=== PATIENT | female | born 1935 | race Caucasian/White ===

== ENCOUNTER → 2018-04-23 08:21 | Outpatient (CLI) | payer MEDICARE, OTHER, SELFPAY ==
--- NOTE | 2018-04-23 08:28 | XR_ITS ---
XR hand LT min 3V HISTORY: Follow-up fracture ITS.REASON: left hand 5th MC fracture ORDERING PHYSICIAN: James Dial MD PATIENT AGE: 82 years COMPARISON: 04/04/2018 FINDINGS: Mildly displaced fracture once again noted involving the distal shaft of the fifth metacarpal. There is mild radial angulation and minimal radial displacement of the distal fracture fragment which is not significantly changed. No callus formation evident. Postsurgical changes are noted involving the distal radius. IMPRESSION: No change mildly displaced distal fifth metacarpal fracture
== END ==
PROVIDERS: PCP Internal Medicine; Visit Provider Orthopaedic Surgery
DX: S62.307A Unspecified fracture of fifth metacarpal bone, left hand, initial encounter for closed fracture (principal)
CPT/HCPCS: 73130

== ENCOUNTER → 2018-05-22 08:40 | Outpatient (CLI) | payer MEDICARE, OTHER, SELFPAY ==
--- NOTE | 2018-05-22 08:46 | XR_ITS ---
XR hand LT min 3V HISTORY: Follow-up fracture ITS.REASON: follow up from LT hand 5th ORDERING PHYSICIAN: James Dial MD PATIENT AGE: 82 years COMPARISON: 04/23/2018 FINDINGS: Mildly displaced fracture involves the distal aspect of the fifth metacarpal. There is minimal radial displacement of the distal fracture fragment. There is some developing callus formation. There is mild anterior angulation of the distal fracture fragment. There is some focal soft tissue swelling along the ulnar aspect of the fifth metacarpal phalangeal joint IMPRESSION: Healing fifth metacarpal fracture minimally displaced
== END ==
PROVIDERS: Visit Provider Orthopaedic Surgery
DX: S62.307A Unspecified fracture of fifth metacarpal bone, left hand, initial encounter for closed fracture (principal)
CPT/HCPCS: 73130

== ENCOUNTER → 2019-04-29 08:13 | Outpatient (CLI) | payer MEDICARE, OTHER, SELFPAY ==
--- NOTE | 2019-04-29 08:21 | XR_ITS ---
PROCEDURE: XR KNEE RT 4V CLINICAL INDICATION: right knee pain COMPARISON: No exams were available for comparison FINDINGS: There are no previous exams available for comparison. The patient has had prior intramedullary sandro placement into the femur. Callus formation is present in the mid to distal shaft of the femur anteriorly. No acute fracture or dislocation of the knee. There is very minimal decrease in joint space medially which may be due to early osteoarthritic change. IMPRESSION: No acute finding. Minimal osteoarthritic change. Prior ORIF of the femur Dictated by: Negrito Coles MD 04/29/2019 09:52 Electronically signed by Negrito Coles MD in [place] 04/29/2019 09:52
== END ==
PROVIDERS: Visit Provider Orthopaedic Surgery
DX: M25.561 Pain in right knee (principal)
CPT/HCPCS: 73564

== ENCOUNTER → 2019-12-28 13:34 | Outpatient (CLI) | payer MEDICARE, OTHER, SELFPAY ==
--- NOTE | 2019-12-28 13:40 | XR_ITS ---
PROCEDURE: XR LUMBAR SPINE MIN 4V CLINICAL INDICATION: ACUTE BILATERAL LOW BCK PAIN W/O SCIATICA COMPARISON: CR CXR2V XR chest 2V from 08/24/2018 FINDINGS: Has been prior vertebroplasty at L2. Severe wedge compression changes are present at L2 with retropulsion of the posterior aspect of the L2 vertebral body by approximately 8 mm. This does not appear significantly changed compared to lateral chest x-ray of 08/24/2018. Degenerative disc disease is present at L3-L4 and L5-S1. There is 5 mm anterolisthesis of L5. There is kyphosis at L1-L2. Degenerative changes are present at the SI joints. There is an intramedullary sandro in the left femur IMPRESSION: Lumbar spondylosis. Kyphosis with prior vertebroplasty and compressive change at L2 as described above Dictated by: Negrito Coles MD 12/28/2019 14:44 Negrito Coles MD in [place] 12/28/2019 14:44
== END ==
PROVIDERS: PCP Internal Medicine Adolescent Medicine; Visit Provider Internal Medicine Adolescent Medicine
DX: M54.5 Low back pain (principal)
CPT/HCPCS: 72110

== ENCOUNTER 2019-12-31 19:55 | Inpatient (IN) | payer MEDICARE, OTHER, SELFPAY ==
[2019-12-31 19:55] VITALS: BP 154/97; PULSE 118; RESP 20; TEMP 38.7; O2SAT 93; BMI 25.8
--- NOTE | 2019-12-31 20:11 | XR_ITS ---
PROCEDURE: XR CHEST AP CLINICAL HISTORY: cough w/ exposure COMPARISON: CR CXR2V XR chest 2V from 08/24/2018 FINDINGS: The cardiomediastinal silhouette and pulmonary vascularity are within normal limits. The lungs are clear without infiltrates, suspicious nodules, or pleural effusions. Surgical clips are present in the right axilla. There is an old right 7th rib fracture. IMPRESSION: No acute findings. Dictated by: Negrito Coles MD 01/01/2020 06:42 Negrito Coles MD in [place] 01/01/2020 06:42
[2019-12-31 20:19] LABS: Basophils # 0.1 K/mm3 (0-0.2); Basophils % 0.9 % (0.1-2.0); Eosinophils % 0.2 % (0.1-12.0); Hemoglobin 14.9 g/dL (12.2-16.2); Lymphocytes # 1.5 K/mm3 (0.7-4.5); Lymphocytes % 18.4 % (10-50); Mean Corpuscular HGB Conc 35.3 g/dL (31.8-35.4); Mean Corpuscular Hemoglobin 34.2 pg (27.0-31.2); Mean Corpuscular Volume 96.9 fl (81-99); Mean Platelet Volume 8.7 fl (7.4-10.4); Monocytes # 0.4 K/mm3 (0.1-1.0); Monocytes % 5.1 % (1.7-9.3); Neutrophils % 75.4 % (37.0-80.0); Platelet Count 141 K/mm3 (142-424); Red Blood Count 4.34 M/mm3 (4.20-5.40); Red Cell Distribution Width 14.4 % (11.5-17.5); White Blood Count 7.9 K/mm3 (4.8-10.8)
[2019-12-31 20:21] LABS: Chloride 100 mmol/L (98-107); Sodium 139 mmol/L (136-145)
[2019-12-31 20:24] LABS: Alanine Aminotransferase 90 U/L (12-78); Albumin Level 4.1 g/dl (3.5-5.0); Albumin/Globulin Ratio 1.1 (1.1-1.8); Alkaline Phosphatase 95 U/L (38-126); Anion Gap 13.9 mEq/L (5-15); Aspartate Amino Transferase 125 U/L (14-36); Bilirubin,Total 0.7 mg/dl (0.2-1.3); Blood Urea Nitrogen 13 mg/dl (7-17); Calcium 9.2 mg/dl (8.4-10.2); Carbon Dioxide 28 mmol/L (22.0-30.0); Creatinine Clearance Estimated 39 mL/min (50-200); Estimated Glomerular Filt Rate 95 ml/min (>60); GFR (African American) 116 ML/MIN (>60); Globulin 3.8 g/dL (1.3-3.2); Glucose 131 mg/dl (74-100); Lactic Acid 1.7 mmol/L (0.7-2.1); Total Protein,Serum 7.9 g/dl (6.3-8.2)
--- NOTE | 2019-12-31 20:34 | PC.NURSE ---
notified of critical pot.
[2019-12-31 20:36] LABS: Potassium 2.9 mmoL/L (3.5-5.1)
[2019-12-31 20:41] LABS: Microscopic, Urine URINE MICROSCOPIC (MICROSCOPIC)
[2019-12-31 20:42] LABS: Appearance,Urine CLEAR (Clear); Bilirubin,Urine Negative (Negative); Blood, Urine Negative (Negative); Color,Urine YELLOW (Yellow); Glucose,Urine (UA) Negative (Negative); Ketones,Urine Negative (Negative); Leukocyte Esterase,Urine TRACE (Negative); Nitrate,Urine Negative (Negative); Protein,Urine 2+ (Negative); Specific Gravity, Urine 1.025 (1.005-1.030); Urobilinogen,Urine 0.2 EU/dl (0.2)
[2019-12-31 20:51] LABS: Coronavirus 19 IgG Antibody Positive (Negative); Coronavirus 19 IgM Antibody Negative (Negative)
[2019-12-31 21:02] LABS: Bacteria,Urine 1+ /lpf
[2019-12-31 21:07] VITALS: BP 158/81; PULSE 102; RESP 20; TEMP 37.5; O2SAT 92
[2019-12-31 21:08] LABS: Strep Scrn Group A (Rapid) Negative (Negative)
[2019-12-31 21:33] VITALS: BP 150/68; PULSE 99; RESP 18; O2SAT 92
--- NOTE | 2019-12-31 21:33 | HMH.EDWEAK ---
ED Disposition Clinical Impression: Hypokalemia, SIRS (systemic inflammatory response syndrome) UTI (urinary tract infection) Qualifiers: Urinary tract infection type: site unspecified Hematuria presence: without hematuria Qualified Code(s): N39.0 - Urinary tract infection, site not specified Disposition: Admitted as Observation Condition on Discharge: Good Instructions: DI for Low Back Pain - Critical Care Critical Care Time: No Attestation: On 12/31/19, the high probability of a clinically significant, sudden or life threatening deterioration of the following system(s) required my full and direct attention, intervention and personal management. The time I documented below is in addition to time spent performing reported procedures but includes the following listed in this critical care notation. Medical Decision Making - Medical Records Medical records reviewed: Yes: I reviewed the patient's medical records. - [place] Inquiry Pt receiving controlled substance: No Vital Signs: 12/31/19 19:55 12/31/19 21:07 12/31/19 21:33 Temperature 101.6 F H 99.5 F Temperature Source Oral Oral Pulse Rate [Right Radial] 118 H 102 H 99 H Respiratory Rate 20 20 18 Blood Pressure [Left Arm] 154/97 H 158/81 H 150/68 H Blood Pressure Mean [Left Arm] 116 106 95 Blood Pressure Source [Left Arm] Automatic Cuff Automatic Cuff Blood Pressure Position [Left Arm] Supine Supine 02 Sat by Pulse Oximetry 93 L 92 L 92 L Oxygen Delivery Method Room Air Nasal Cannula Oxygen Flow Rate (LPM) 1 - Lab Data Lab results reviewed: Yes: I reviewed the patient's lab results. Lab Results 12/31/19 19:57: Urine Color Yellow, Urine Appearance Clear, Urine pH 6.0, Ur Specific [place] 1.025, Urine Protein 2+, Urine Glucose (UA) Negative, Urine Ketones Negative, Urine Blood Negative, Urine Nitrate Negative, Urine Bilirubin Negative, Urine Urobilinogen 0.2, Ur Leukocyte Esterase Trace, Urine RBC 3-5, Urine WBC 10-20, Ur Squamous Epith Cells 3-5, Urine Bacteria 1+ 12/31/19 19:57: WBC 7.9, RBC 4.34, Hgb 14.9, Hct 42.0, MCV 96.9, MCH 34.2 H, MCHC 35.3, RDW 14.4, Plt Count 141 L, MPV 8.7, Neut % (Auto) 75.4, Lymph % (Auto) 18.4, [place] % (Auto) 5.1, Eos % (Auto) 0.2, Baso % (Auto) 0.9, Neut # (Auto) 6.0, Lymph # (Auto) 1.5, [place] # (Auto) 0.4, Eos # (Auto) 0.0, Baso # (Auto) 0.1 12/31/19 19:57: Sodium 139, Potassium 2.9 L*, Chloride 100, Carbon Dioxide 28, Anion Gap 13.9, BUN 13, Creatinine 0.60, Estimated Creat Clear 39, Estimated GFR 95, Est GFR ( Amer) 116, Glucose 131 H, Calcium 9.2, Total Bilirubin 0.7, AST 125 H, ALT 90 H, Alkaline Phosphatase 95, Total Protein 7.9, Albumin 4.1, Globulin 3.8 H, Albumin/Globulin Ratio 1.1 12/31/19 19:57: Lactate 1.7 12/31/19 19:57: Influenza Type A Ag Negative, Influenza Type B Ag Negative, SARS-CoV-2 IgG Ab (Rapid) Positive A, SARS-CoV-2 IgM Ab (Rapid) Negative 12/31/19 19:57: Group A Strep Rapid Negative Result diagrams: 12/31/19 19:57 12/31/19 19:57 Orders (Tests/Meds): ED MEDICATIONS Generic Name Dose Route Start Last Admin Trade Name Freq PRN Reason Stop Dose Admin Sodium Chloride 1,000 mls @ 999 mls/hr 12/31/19 20:15 12/31/19 20:15 Sod Chlor 0.9% 1000ml Bag IV 12/31/19 21:15 999 mls/hr .Q1H1M CHITRA Administration Ceftriaxone Sodium 1 gm/ 50 mls @ 100 mls/hr 12/31/19 21:30 Sodium Chloride IV 01/14/20 21:29 Q24H CHITRA Protocol Discontinued Medications Generic Name Dose Route Start Last Admin Trade Name Freq PRN Reason Stop Dose Admin Acetaminophen 650 mg 12/31/19 20:11 12/31/19 20:15 Acetaminophen 325mg Tab PO 12/31/19 20:12 650 mg ONCE ONE Administration Potassium Chloride 40 meq 12/31/19 20:44 12/31/19 20:45 Klor-Con 20meq Tablet PO 12/31/19 20:45 40 meq ONCE ONE Administration ORDERS Category Date Time Status XR chest AP Stat Exams 12/31/19 20:11 Taken Blood Culture Stat Micro 12/31/19 19:57 Received Strep Screen Confirmation
--- NOTE | 2019-12-31 21:35 | PC.NURSE ---
paged Dr. Ndiaye
--- NOTE | 2019-12-31 22:34 | PC.NURSE ---
Report called to PRISCILA Oshea at this time
[2019-12-31 22:54] VITALS: BP 140/75; PULSE 96; RESP 18; O2SAT 94
[2019-12-31 23:02] VITALS: BP 135/71; PULSE 102; RESP 20; TEMP 37; O2SAT 95; BMI 25.2
--- NOTE | 2019-12-31 23:03 | PC.NURSE ---
PT ARRIVED TO THE FLOOR VIA STRETCHER W/STAFF FROM ED AT 2302.
[2019-12-31 23:06] VITALS: BP 140/75; PULSE 96; RESP 16; TEMP 37.5; O2SAT 94
--- NOTE | 2020-01-01 03:43 | PC.NURSE ---
Pt is A&Ox4 and has ambulated from stretcher to bed and tolerated well with staff assist x2. Pt has denied any pain, N/V/D, or SOB thus far this shift. Pt also denies cough or loss of taste and smell. Pt has been febrile this shift with a T-max of 101.6, Tylenol administered per JUN. Lungs are CTA. Pt was placed on 2LPM via NC in the ER, weaned to 1 LMP of O2 at this time with SaO2 93%. Pt denies wearing any home O2 or have any baseline respiratory issues. Pt has been tachycardic this shift with HR-max 118 in ER, since arrival to floor, HR 96-102. ABD is soft, non-tender, and active BS noted. Pt reports last BM was 12/30. No edema noted and peripheral pulses 2+. Pt remains in Airborne & Contact precautions d/t pending outpt swab. Staff has used full airborne and contact PPE with eye protection. VSS, call light within reach.
[2020-01-01 04:00] VITALS: BP 145/75; PULSE 77; RESP 18; TEMP 36.6; O2SAT 96
[2020-01-01 05:08] VITALS: BMI 25.2
[2020-01-01 06:11] LABS: Eosinophils % 0.3 % (0.1-12.0); Mean Platelet Volume 8.7 fl (7.4-10.4); Neutrophils # 4.2 K/mm3 (1.8-7.8); Platelet Count 125 K/mm3 (142-424)
[2020-01-01 06:28] LABS: Chloride 109 mmol/L (98-107); Potassium 4.4 mmoL/L (3.5-5.1); Sodium 143 mmol/L (136-145)
[2020-01-01 06:29] LABS: Basophils % 0.4 % (0.1-2.0); Hematocrit 38.3 % (37.0-47.0); Lymphocytes # 2.1 K/mm3 (0.7-4.5); Lymphocytes % 31.1 % (10-50); Mean Corpuscular HGB Conc 34.6 g/dL (31.8-35.4); Mean Corpuscular Hemoglobin 34.8 pg (27.0-31.2); Mean Corpuscular Volume 100.5 fl (81-99); Monocytes # 0.4 K/mm3 (0.1-1.0); Monocytes % 5.3 % (1.7-9.3); Neutrophils % 62.8 % (37.0-80.0); Red Blood Count 3.81 M/mm3 (4.20-5.40); Red Cell Distribution Width 14.2 % (11.5-17.5); White Blood Count 6.6 K/mm3 (4.8-10.8)
[2020-01-01 06:31] LABS: Anion Gap 9.4 mEq/L (5-15); Blood Urea Nitrogen 8 mg/dl (7-17); Calcium 8.5 mg/dl (8.4-10.2); Carbon Dioxide 29 mmol/L (22.0-30.0); Creatinine Clearance Estimated 38 mL/min (50-200); Estimated Glomerular Filt Rate 118 ml/min (>60); GFR (African American) 143 ML/MIN (>60); Glucose 107 mg/dl (74-100); Magnesium 1.8 mg/dl (1.6-2.3)
[2020-01-01 06:42] LABS: Hemoglobin 13.3 g/dL (12.2-16.2)
--- NOTE | 2020-01-01 07:39 | HMH.PHAVTE ---
[facility] Pharmacy VTE Monitoring - Patient Demographics Admission date: 01/01/20 Report Date: 01/01/20 Time: 07:39 Allergies/Adverse Reactions: Patient Allergies No Known Allergies Allergy (Verified 04/29/19 09:33) Height: 1.5 m Weight: 56.841 kg Patient Problems: Current Active Problems Hypokalemia (Acute) UTI (urinary tract infection) (Acute) SIRS (systemic inflammatory response syndrome) (Acute) - VTE Risk Labs: VTE Related Lab Results Hgb 13.3 g/dL (12.2-16.2) D 01/01/20 06:03 Hct 38.3 % (37.0-47.0) 01/01/20 06:03 Plt Count 125 K/mm3 (142-424) L 01/01/20 06:03 BUN 8 mg/dl (7-17) D 01/01/20 06:03 Creatinine 0.50 mg/dl (0.52-1.04) L 01/01/20 06:03 Estimated Creat Clear 38 mL/min (50-200) 01/01/20 06:03 Was VTE Risk Assessment Performed: Yes VTE Score: 6 VTE Risk Level: Moderate Risk Clinical Trial Participant: No - Prophylaxis VTE Prophylaxis Ordered?: Yes Types of VTE Prophylaxis: TEDS Knee High
[2020-01-01 07:49] VITALS: BP 150/88; PULSE 76; RESP 22; TEMP 36.9; O2SAT 89
[2020-01-01 08:00] VITALS: RESP 22; O2SAT 92
--- NOTE | 2020-01-01 08:27 | HMH.HP ---
*Admission Date: 01/01/20 *Chief complaint: cough, back pain, fever *History of present illness: 84-year-old female with history of chronic back pain, worsening fatigue, difficulty getting into her home yesterday due to severity of pain. Was brought to the ER via EMS due to her back pain and nausea. On arrival found to be febrile and tachycardic. Initial work-up concerning for UTI and was initiated on broad-spectrum antibiotics. Admission labs found her to be positive for COVID-19 IgG. Of note, she has been around her son-in-law who was positive for COVID-19, last exposure 12/22/2019. Patient has had some worsening fatigue and ache in her back starting over this past weekend. Minimal dry nonproductive cough as well. Denies dyspnea, diarrhea, chest pain. This morning given her cough, positive IgG for COVID-19, and exposure risk, nasal/respiratory PCR obtained showing her to be positive for COVID-19. Transition to respiratory isolation unit for further management. Pleasant and interactive on exam this morning [facility] History I have reviewed the patient's past medical history: Yes Medical History: Reports:: Aneurysm, Anxiety, Depression, Hyperlipidemia, Hypertension Denies:: Cancer, Diabetes Mellitus Type 1, Diabetes Mellitus Type 2, MRSA *Have you ever received a pneumonia vaccine?: Yes *Have you received a flu vaccine this season?: Yes Other Medical History: Reports: Arthritis, Cataracts Laterality Cases: Right: Mastectomy, Bilateral: Other Other Surgeries: Yes: Colonoscopy, , Tubal Ligation, Other Amputation: No Fractures: Yes - *Social History Last grade of school completed: 11th or 12th Smoking Status: Former smoker Alcohol Intake: never *Occupational Status:: retired [facility] Household Members: spouse *Travel in the last 8 weeks: None - Psychiatric History Pschychiatric History:: Reports:: Anxiety, Depression Family Hx:: Unable to obtain Review of Systems - Review of Systems Review of systems:: pertinent systems reviewed and negative unless documented below (14 point review of systems performed, pertinent positives and negatives as per HPI) - *Neurologic Reports weakness, Denies headache(s), Denies seizure-like activity Meds Home Medications Medication Instructions Recorded Confirmed Type Meclizine HCl [Meclizine 25mg Tab] 25 mg PO QIDP PRN #25 tab 09/19/17 12/31/19 Rx alprazolam 0.25 mg tablet 0.25 mg PO DAILY 04/10/18 01/01/20 History atorvastatin 40 mg tablet 40 mg PO DAILY 04/10/18 12/31/19 History calcium carbonate 200 mg calcium 200 mg PO BID tab 04/10/18 12/31/19 History (500 mg) chewable tablet omeprazole 20 mg capsule,delayed 20 mg PO DAILY 04/10/18 12/31/19 History release vitamins A,C,F-glzr-kdjpgi 14,320 1 cap PO BID 04/10/18 12/31/19 History unit-226 mg-200 unit capsule Cholecalciferol (Vitamin D3) 1,000 unit PO DAILY 01/01/20 01/01/20 History [Vitamin D3 1,000 Unit Cap] Allergies Allergy/AdvReac Type Severity Reaction Status Date / Time No Known Allergies Allergy Verified 04/29/19 09:33 Exam Vital signs and Labs for Last 24 Hours: Temp Pulse Resp BP Pulse Ox 98.4 F 76 22 150/88 H 89 L 01/01/20 07:49 01/01/20 07:49 01/01/20 07:49 01/01/20 07:49 01/01/20 07:49 Laboratory Results - last 24 hr 12/31/19 19:57: Urine Color Yellow, Urine Appearance Clear, Urine pH 6.0, Ur Specific [place] 1.025, Urine Protein 2+, Urine Glucose (UA) Negative, Urine Ketones Negative, Urine Blood Negative, Urine Nitrate Negative, Urine Bilirubin Negative, Urine Urobilinogen 0.2, Ur Leukocyte Esterase Trace, Urine RBC 3-5, Urine WBC 10-20, Ur Squamous Epith Cells 3-5, Urine Bacteria 1+ 12/31/19 19:57: WBC 7.9, RBC 4.34, Hgb 14.9, Hct 42.0, MCV 96.9, MCH 34.2 H, MCHC 35.3, RDW 14.4, Plt Count 141 L, MPV 8.7, Neut % (Auto) 75.4, Lymph % (Auto) 18.4, [place] % (Auto) 5.1, Eos % (Auto) 0.2, Baso % (Auto) 0.9, Neut # (Auto) 6.0, Lymph # (Auto) 1.5, [place] # (Auto) 0.4, Eos #
[2020-01-01 15:48] VITALS: BP 112/56; PULSE 74; RESP 20; TEMP 35.9; O2SAT 95
[2020-01-01 17:22] VITALS: O2SAT 95
[2020-01-01 20:12] VITALS: BP 94/63; PULSE 69; RESP 18; TEMP 35.8; O2SAT 92
[2020-01-02] VITALS (7 sets, daily range): BP systolic 109–121; BP diastolic 46–62; PULSE 51–68; RESP 16–19; TEMP 36–36.7; O2SAT 89–93; BMI 26.0
--- NOTE | 2020-01-02 00:29 | PC.NURSE ---
rectal temp 96.8 rectally, warm blankets applied.skin cool to touch.
--- NOTE | 2020-01-02 06:25 | PC.NURSE ---
patient has been alert and oriented throughout shift, denies soa. sats remain low 90s on 1l nc. has been continent of bowel and bladder. urine dark yellow in color. 2 loose stools noted. am labs obtained and sent to lab
[2020-01-02 06:39] LABS: Basophils % 0.1 % (0.1-2.0); Eosinophils % 0.2 % (0.1-12.0); Hematocrit 35.6 % (37.0-47.0); Hemoglobin 12.2 g/dL (12.2-16.2); Lymphocytes # 1.3 K/mm3 (0.7-4.5); Lymphocytes % 17.1 % (10-50); Mean Corpuscular HGB Conc 34.4 g/dL (31.8-35.4); Mean Corpuscular Hemoglobin 34.1 pg (27.0-31.2); Mean Corpuscular Volume 99.1 fl (81-99); Mean Platelet Volume 9.6 fl (7.4-10.4); Monocytes # 0.4 K/mm3 (0.1-1.0); Monocytes % 4.7 % (1.7-9.3); Neutrophils # 5.9 K/mm3 (1.8-7.8); Neutrophils % 77.9 % (37.0-80.0); Platelet Count 112 K/mm3 (142-424); Red Blood Count 3.59 M/mm3 (4.20-5.40); Red Cell Distribution Width 14.3 % (11.5-17.5); White Blood Count 7.6 K/mm3 (4.8-10.8)
[2020-01-02 06:45] LABS: Chloride 108 mmol/L (98-107); Potassium 3.4 mmoL/L (3.5-5.1); Sodium 141 mmol/L (136-145)
[2020-01-02 06:48] LABS: Alanine Aminotransferase 60 U/L (12-78); Albumin/Globulin Ratio 0.9 (1.1-1.8); Alkaline Phosphatase 58 U/L (38-126); Anion Gap 12.4 mEq/L (5-15); Aspartate Amino Transferase 72 U/L (14-36); Bilirubin,Total 0.4 mg/dl (0.2-1.3); Blood Urea Nitrogen 11 mg/dl (7-17); Calcium 8.2 mg/dl (8.4-10.2); Carbon Dioxide 24 mmol/L (22.0-30.0); Creatinine Clearance Estimated 39 mL/min (50-200); Estimated Glomerular Filt Rate 152 ml/min (>60); GFR (African American) 184 ML/MIN (>60); Globulin 3.2 g/dL (1.3-3.2); Glucose 119 mg/dl (74-100); Total Protein,Serum 6.2 g/dl (6.3-8.2)
[2020-01-02 07:07] LABS: Magnesium 1.7 mg/dl (1.6-2.3)
--- NOTE | 2020-01-02 07:35 | HMH.ACPN2 ---
Internal Medicine - PN: Subj *Date: 01/02/20 *Time: 14:43 Interval history: Ms. Kaur remained stable on room air at this time. Her urine culture has not speciated given concern that her infectious presentation is all related to COVID, not UTI. Tolerating p.o. intake better this morning. Remains afebrile. no nausea, worsening MELANIE, CP. continues to complain of back pain Exam Vital signs and Labs for Last 24 Hours: Temp Pulse Resp BP Pulse Ox 97.9 F 67 18 112/58 L 91 L 01/02/20 04:00 01/02/20 04:00 01/02/20 04:00 01/02/20 04:00 01/02/20 04:00 Laboratory Results - last 24 hr 01/02/20 05:40: WBC 7.6, RBC 3.59 L, Hgb 12.2, Hct 35.6 L, MCV 99.1 H, MCH 34.1 H, MCHC 34.4, RDW 14.3, Plt Count 112 L, MPV 9.6, Neut % (Auto) 77.9, Lymph % (Auto) 17.1, [place] % (Auto) 4.7, Eos % (Auto) 0.2, Baso % (Auto) 0.1, Neut # (Auto) 5.9, Lymph # (Auto) 1.3, [place] # (Auto) 0.4, Eos # (Auto) 0.0, Baso # (Auto) 0.0 01/02/20 05:40: Magnesium 1.7 01/02/20 05:40: Sodium 141, Potassium 3.4 L D, Chloride 108 H, Carbon Dioxide 24, Anion Gap 12.4, BUN 11 D, Creatinine 0.40 L, Estimated Creat Clear 39, Estimated GFR 152, Est GFR ( Amer) 184 D, Glucose 119 H, Calcium 8.2 L, Total Bilirubin 0.4, AST 72 H D, ALT 60 D, Alkaline Phosphatase 58, Total Protein 6.2 L, Albumin 3.0 L D, Globulin 3.2, Albumin/Globulin Ratio 0.9 L I & O for Last 24 hours: Intake & Output 12/30/19 12/31/19 01/01/20 01/02/20 23:59 23:59 23:59 23:59 Intake Total 1450 / 1450 100 / 100 Output Total 1600 / 1600 Balance -150 / -150 100 / 100 Weight 56.756 kg 56.841 kg 58.655 kg Microbiology Reports for the Last 24 Hours: Microbiology 12/31/19 19:57 Urine,Clean Catch Urine Culture - Preliminary NO GROWTH AFTER 24 HOURS 01/01/20 08:35 Nasopharyngeal Coronavirus COVID-19 PCR - Final Narrative: - Constitutional minimal distress, average body habitus, chronically ill appearing - *Routine HEENT Exam Head: Present: normocephalic Eye: Present: EOMI, PERRL ENT: Present: mucous membranes moist - *Routine Neck Exam Present: supple. Absent: lymphadenopathy - *Routine Respiratory Exam Present: CTA bilaterally. Absent: rales, wheezes - *Routine Cardiovascular Exam Present: RRR - *Routine Abdominal Exam Present: soft, normoactive bowel sounds, tenderness (Diffuse nonfocal) - *Routine Extremities Exam Absent: cyanosis, clubbing, edema - Routine Back/Spine/Pelvis Exam Back/Spine: Present: paraspinal tenderness, vertebral tenderness (Lumbar). Absent: CVA tenderness - *Routine Skin Exam Present: warm. Absent: rash - *Routine Neurological Exam Present: alert, oriented X3, tremors Assessment and Plan (1) COVID-19 Current visit: Yes Status: Acute Category: Medical Code(s): U07.1 - COVID-19 (2) Hypokalemia Current visit: Yes Status: Acute Category: Medical Code(s): E87.6 - Hypokalemia (3) UTI (urinary tract infection) Current visit: Yes Status: Acute Qualifiers: Urinary tract infection type: site unspecified Hematuria presence: without hematuria Qualified Code(s): N39.0 - Urinary tract infection, site not specified Category: Medical Code(s): N39.0 - Urinary tract infection, site not specified (4) Sepsis Current visit: Yes Status: Acute Category: Medical Code(s): A41.9 - Sepsis, unspecified organism - Assessment and plan all Dx Assessment and Plan for all problems:: 84-year-old female with positive COVID viral swab. Stable on current regimen per protocol with arm does appear, steroids, anticoagulant, and vitamins. Continue supplemental oxygen as needed. Patient very comfortable today, clinically stable. Continue to monitor urine, negative growth on culture at this time. We will continue empiric antibiotics for coverage pending finalized culture. At this time she continues to require inpatient management, anticipate discharge in the coming
--- NOTE | 2020-01-02 11:30 | PC.NURSE ---
Attempted to wean pt to room air. O2 noted at 85%. Pt placed back on 1L. O2 sat noted at 91%. Pt tolerating well.
--- NOTE | 2020-01-02 18:20 | PC.NURSE ---
A&OX4. Pt has tolerated 1L NC well throughout shift. Respirations regular and unlabored. Lung sounds diminished throughout. Occasional nonproductive cough noted. No edema noted. +2 pulses noted. Hand bicycle repairer equal. Active bowel sounds heard in all 4 quadrants. Soft and nontender abdomen. Pt had 1 small loose BM this shift. Pt voids per toilet w/ 1 person assist. Weakness noted. Dark yellow urine noted. No complaints of pain or shortness of breath throughout shift. No reports of nausea. Pt has remained afebrile. Pt has remained in contact and airborne precautions w eye protection throughout shift. LR infusing at 100ml/hr. Pt moves independently in bed. Pt is currently lying in bed resting. Call light within reach. Bed in lowest position. VSS. Will continue to monitor.
--- NOTE | 2020-01-02 23:22 | PC.NURSE ---
2000 patient having visual hallucinations, dr. ventura notified and new orders received, repeated back and carried out.
--- NOTE | 2020-01-02 23:24 | PC.NURSE ---
patient laying in bed, picking at things, removing o2 sensor as well as o2. r/a sat of 82%. oxygen reapplied at 2 l nc. o2 sats remained 86%, o2 increased to 3 l nc. currently o2 sats remain 90%. currently denies seeing people outside of room as she was earlier in shift.
[2020-01-03] VITALS: BP 128/61; PULSE 45; RESP 18; TEMP 36.2; O2SAT 94
--- NOTE | 2020-01-03 00:19 | PC.NURSE ---
patient now resting with eyes closed. o2 sats 93% at 3 l nc. will decrease o2 back down to 1 l nc. heart rate 40s to 50s and regular per palpation.
--- NOTE | 2020-01-03 02:32 | PC.NURSE ---
patient ambulated to bathroom on room air, sats 80% upon return to bed. 3l nc reapplied. patient breathing unlabored, remained 16-18 breaths per minute. denies hallucinations currently but remembers them from previous in the shift. unsteady on feet. heart rate increased to 55 with activity. breath sounds diminished throughout, no cough present.
[2020-01-03 04:00] VITALS: BP 133/63; PULSE 53; RESP 18; TEMP 36.5; O2SAT 91
[2020-01-03 06:05] LABS: Basophils % 0.1 % (0.1-2.0); Eosinophils % 0.1 % (0.1-12.0); Hematocrit 34.2 % (37.0-47.0); Hemoglobin 11.9 g/dL (12.2-16.2); Lymphocytes # 1.5 K/mm3 (0.7-4.5); Lymphocytes % 11.4 % (10-50); Mean Corpuscular HGB Conc 34.8 g/dL (31.8-35.4); Mean Corpuscular Hemoglobin 34.6 pg (27.0-31.2); Mean Corpuscular Volume 99.4 fl (81-99); Mean Platelet Volume 10.3 fl (7.4-10.4); Monocytes # 0.7 K/mm3 (0.1-1.0); Neutrophils % 83.4 % (37.0-80.0); Platelet Count 153 K/mm3 (142-424); Red Blood Count 3.44 M/mm3 (4.20-5.40); Red Cell Distribution Width 14.7 % (11.5-17.5); White Blood Count 13.1 K/mm3 (4.8-10.8)
--- NOTE | 2020-01-03 06:05 | PC.NURSE ---
patient remains on 3l nc sats 90s when asleep and decrease to 88% while awake. periodically sats will dip to 86 unsustained. breath sounds remain diminished throughout all [place]. slightly restless and anxious when awake denies any further hallucinations.
[2020-01-03 06:13] LABS: Chloride 110 mmol/L (98-107)
[2020-01-03 06:14] LABS: Potassium 3.2 mmoL/L (3.5-5.1); Sodium 142 mmol/L (136-145)
[2020-01-03 06:16] LABS: Alanine Aminotransferase 50 U/L (12-78); Alkaline Phosphatase 58 U/L (38-126); Anion Gap 10.2 mEq/L (5-15); Aspartate Amino Transferase 56 U/L (14-36); Bilirubin,Total 0.2 mg/dl (0.2-1.3); Blood Urea Nitrogen 18 mg/dl (7-17); Carbon Dioxide 25 mmol/L (22.0-30.0); Creatinine Clearance Estimated 39 mL/min (50-200); Estimated Glomerular Filt Rate 118 ml/min (>60); GFR (African American) 143 ML/MIN (>60)
[2020-01-03 06:17] LABS: Albumin Level 2.9 g/dl (3.5-5.0); Calcium 8.3 mg/dl (8.4-10.2); Globulin 2.9 g/dL (1.3-3.2); Glucose 115 mg/dl (74-100); Magnesium 1.8 mg/dl (1.6-2.3); Total Protein,Serum 5.8 g/dl (6.3-8.2)
[2020-01-03 08:00] VITALS: BP 124/70; PULSE 56; RESP 18; TEMP 36.2; O2SAT 93; O2SAT 96
--- NOTE | 2020-01-03 08:32 | HMH.ACPN2 ---
Internal Medicine - PN: Subj *Date: 01/03/20 *Time: 11:03 Interval history: Patient slight increase in oxygen overnight to 3 L. Tolerating good p.o. intake. Denies any progression of shortness of breath however. Afebrile. Hemodynamically stable. Of note, has had some questionable hallucinations/seeing people at her window overnight/during stay. Is cognizant of them and knows they are not real but this has been troublesome to her. Slept well with 1 dose of Ativan last night. Is otherwise alert and oriented. no CP, [place], Nausea; c/o fatigue. Exam Vital signs and Labs for Last 24 Hours: Temp Pulse Resp BP Pulse Ox 97.2 F L 56 L 18 124/70 93 L 01/03/20 08:00 01/03/20 08:00 01/03/20 08:00 01/03/20 08:00 01/03/20 08:00 Laboratory Results - last 24 hr 01/03/20 05:30: Sodium 142, Potassium 3.2 L, Chloride 110 H, Carbon Dioxide 25, Anion Gap 10.2, BUN 18 H D, Creatinine 0.50 L D, Estimated Creat Clear 39, Estimated GFR 118, Est GFR ( Amer) 143 D, Glucose 115 H, Calcium 8.3 L, Magnesium 1.8, Total Bilirubin 0.2, AST 56 H, ALT 50, Alkaline Phosphatase 58, Total Protein 5.8 L, Albumin 2.9 L, Globulin 2.9, Albumin/Globulin Ratio 1.0 L 01/03/20 05:30: WBC 13.1 H D, RBC 3.44 L, Hgb 11.9 L, Hct 34.2 L, MCV 99.4 H, MCH 34.6 H, MCHC 34.8, RDW 14.7, Plt Count 153 D, MPV 10.3, Neut % (Auto) 83.4 H, Lymph % (Auto) 11.4, [place] % (Auto) 5.0, Eos % (Auto) 0.1, Baso % (Auto) 0.1, Neut # (Auto) 11.0 H, Lymph # (Auto) 1.5, [place] # (Auto) 0.7, Eos # (Auto) 0.0, Baso # (Auto) 0.0 I & O for Last 24 hours: Intake & Output 12/31/19 01/01/20 01/02/20 01/03/20 23:59 23:59 23:59 23:59 Intake Total 1450 / 1450 2519 / 2519 360 / 360 Output Total 1600 / 1600 650 / 850 200 / 200 Balance -150 / -150 1869 / 1669 160 / 160 Weight 56.756 kg 56.841 kg 58.655 kg Microbiology Reports for the Last 24 Hours: Microbiology 12/31/19 19:57 Throat Group A Streptococcus Screen (ODALYS) - Final Negative for Group A Streptococcus. 12/31/19 19:57 Urine,Clean Catch Urine Culture - Final Multiple organisms, suggests contamination. 12/31/19 19:57 Blood Blood Culture - Preliminary NO GROWTH AFTER 48 HOURS 12/31/19 19:57 Blood Blood Culture - Preliminary NO GROWTH AFTER 48 HOURS Narrative: - Constitutional minimal distress, average body habitus, chronically ill appearing - *Routine HEENT Exam Head: Present: normocephalic Eye: Present: EOMI, PERRL ENT: Present: mucous membranes moist - *Routine Neck Exam Present: supple. Absent: lymphadenopathy - *Routine Respiratory Exam Present: Crackles on right side in lower lobes, comparatively clear on left. Absent: rales, wheezes Chest: s/p mastectomy on right (POA) - *Routine Cardiovascular Exam Present: RRR - *Routine Abdominal Exam Present: soft, normoactive bowel sounds, tenderness (Diffuse nonfocal) - *Routine Extremities Exam Absent: cyanosis, clubbing, edema - Routine Back/Spine/Pelvis Exam Back/Spine: Present: paraspinal tenderness, vertebral tenderness (Lumbar). Absent: CVA tenderness - *Routine Skin Exam Present: warm. Absent: rash - *Routine Neurological Exam Present: alert, oriented X3, tremors Assessment and Plan (1) COVID-19 Current visit: Yes Status: Acute Category: Medical Code(s): U07.1 - COVID-19 (2) Hypokalemia Current visit: Yes Status: Acute Category: Medical Code(s): E87.6 - Hypokalemia Replete as needed, p.o. potassium ordered today (3) UTI (urinary tract infection) Current visit: Yes Status: Acute Qualifiers: Urinary tract infection type: site unspecified Hematuria presence: without hematuria Qualified Code(s): N39.0 - Urinary tract infection, site not specified Category: Medical Code(s): N39.0 - Urinary tract infection, site not specified (4) Sepsis Current visit: Yes Status:
--- NOTE | 2020-01-03 10:41 | PC.NURSE ---
IS @ best this AM = [id number]
[2020-01-03 12:00] VITALS: BP 118/59; PULSE 54; RESP 20; TEMP 36.3; O2SAT 92
[2020-01-03 16:00] VITALS: BP 125/57; PULSE 52; RESP 20; TEMP 36.4; O2SAT 90
--- NOTE | 2020-01-03 16:28 | PC.NURSE ---
Addendum entered by Marisela Phipps RN 01/03/20 17:21: 1700 -O2 increased to 4 L nasal cannula at this time to maintain sat of 90%. Original Note: Pt was up to chair for a few hours and lunch this shift, is currently resting in bed. Remains on 3 L O2 per nasal cannula w/ sat > 90%. Is is at bedside and has been encouraged hourly. Staff has to often remind pt to keep pulse ox on for cont monitoring, pt verbalizes understanding but will take it off d/t forgetfulness. Pt did have one episode this morning of hallucination of a army parade and still recalls the hallucinations from last night, but denies seeing anything after that. Has been assisted to bathroom by staff d/t pt's weakness and side-stepping. Pt denies using a walker at home but does use a cane occasionally. Pt was assisted w/ bath by staff. Voiding clear light luis urine w/o difficulty. Has had one BM this shift. Pt has spoke w/ daughter on the phone earlier this shift. No needs or complaints voiced. Will continue to monitor.
[2020-01-03 18:21] VITALS: BMI 28.4
[2020-01-03 20:00] VITALS: BP 125/58; PULSE 55; RESP 18; TEMP 36.5; O2SAT 91
--- NOTE | 2020-01-03 21:38 | PC.NURSE ---
o2 to 2 lnc. patient resting comfortably. denies having hallucinations at this time
[2020-01-04] VITALS (7 sets, daily range): BP systolic 112–147; BP diastolic 60–82; PULSE 40–68; RESP 16–20; TEMP 36.5–36.7; O2SAT 91–93; BMI 27.6
--- NOTE | 2020-01-04 04:46 | PC.NURSE ---
patient remained on 2 l nc until period of desaturations lasting approximately 30-45 min with sats sustaining 85% at 0130. o2 increased back to 4 l nc. breath sounds diminished throughout all [place]. patient has denied any hallucinations and has rested well throughout the night. when awake patient uses i/s without promting.
--- NOTE | 2020-01-04 06:00 | XR_ITS ---
PROCEDURE: XR CHEST PORTABLE CLINICAL HISTORY: increased O2 requirement Shortness of air COMPARISON: CR CXR2V XR chest 2V from 08/24/2018 CR XR CHEST AP from 12/31/2019 FINDINGS: Mild cardiomegaly without failure. There is increasing density in the right mid upper lung zone consistent with pneumonia. Surgical clips are present in the right axilla. No acute bony abnormalities. IMPRESSION: Right upper lobe pneumonia Dictated by: Negrito Coles MD 01/04/2020 06:31 Negrito Coles MD in [facility] 01/04/2020 06:31
[2020-01-04 06:42] LABS: Basophils % 0.2 % (0.1-2.0); Eosinophils % 0.1 % (0.1-12.0); Hematocrit 35.2 % (37.0-47.0); Lymphocytes # 1.4 K/mm3 (0.7-4.5); Lymphocytes % 9.9 % (10-50); Mean Corpuscular HGB Conc 33.9 g/dL (31.8-35.4); Mean Corpuscular Hemoglobin 34.1 pg (27.0-31.2); Mean Corpuscular Volume 100.4 fl (81-99); Mean Platelet Volume 10.4 fl (7.4-10.4); Monocytes % 6.6 % (1.7-9.3); Neutrophils # 11.9 K/mm3 (1.8-7.8); Platelet Count 174 K/mm3 (142-424); Red Blood Count 3.51 M/mm3 (4.20-5.40); Red Cell Distribution Width 14.7 % (11.5-17.5); White Blood Count 14.3 K/mm3 (4.8-10.8)
--- NOTE | 2020-01-04 06:42 | PC.NURSE ---
o2 decreased back to 2 lnc sats maintaining 88-89%. patient breathing pattern unlabored, rr < 20 and > 12. breath sounds diminished throughout.
[2020-01-04 06:44] LABS: Chloride 109 mmol/L (98-107); Sodium 141 mmol/L (136-145)
[2020-01-04 06:45] LABS: Potassium 3.4 mmoL/L (3.5-5.1)
[2020-01-04 06:47] LABS: Alanine Aminotransferase 60 U/L (12-78); Albumin Level 2.8 g/dl (3.5-5.0); Alkaline Phosphatase 61 U/L (38-126); Anion Gap 9.4 mEq/L (5-15); Aspartate Amino Transferase 58 U/L (14-36); Bilirubin,Total 0.2 mg/dl (0.2-1.3); Blood Urea Nitrogen 17 mg/dl (7-17); Calcium 8.3 mg/dl (8.4-10.2); Carbon Dioxide 26 mmol/L (22.0-30.0); Creatinine Clearance Estimated 42 mL/min (50-200); Estimated Glomerular Filt Rate 118 ml/min (>60); GFR (African American) 143 ML/MIN (>60); Globulin 2.9 g/dL (1.3-3.2); Glucose 105 mg/dl (74-100); Magnesium 1.8 mg/dl (1.6-2.3); Total Protein,Serum 5.7 g/dl (6.3-8.2)
[2020-01-04 06:53] LABS: C-Reactive Protein 20.9 mg/L (0-4)
--- NOTE | 2020-01-04 07:59 | P.PN_ITS ---
Internal Medicine - PN: Subj *Date: 01/04/20 *Time: 08:16 Interval history: Patient remains on fairly minimal oxygen settings. Was able to be weaned down to 2 L nasal cannula. Is pleasant and talkative, denies complaints. Exam Vital signs and Labs for Last 24 Hours: Temp Pulse Resp BP Pulse Ox 97.7 F 48 L 20 143/68 H 91 L 01/04/20 04:43 01/04/20 04:43 01/04/20 04:43 01/04/20 04:43 01/04/20 04:43 Laboratory Results - last 24 hr 01/04/20 05:00: WBC 14.3 H, RBC 3.51 L, Hgb 12.0 L, Hct 35.2 L, MCV 100.4 H, MCH 34.1 H, MCHC 33.9, RDW 14.7, Plt Count 174, MPV 10.4, Neut % (Auto) 83.0 H, Lymph % (Auto) 9.9 L, [place] % (Auto) 6.6, Eos % (Auto) 0.1, Baso % (Auto) 0.2, Neut # (Auto) 11.9 H, Lymph # (Auto) 1.4, [place] # (Auto) 1.0, Eos # (Auto) 0.0, Baso # (Auto) 0.0 01/04/20 05:00: Sodium 141, Potassium 3.4 L, Chloride 109 H, Carbon Dioxide 26, Anion Gap 9.4, BUN 17, Creatinine 0.50 L, Estimated Creat Clear 42, Estimated GFR 118, Est GFR ( Amer) 143, Glucose 105 H, Calcium 8.3 L, Magnesium 1.8, Total Bilirubin 0.2, AST 58 H, ALT 60, Alkaline Phosphatase 61, C-Reactive Protein 20.9 H, Total Protein 5.7 L, Albumin 2.8 L, Globulin 2.9, Albumin/Globulin Ratio 1.0 L I & O for Last 24 hours: Intake & Output 01/01/20 01/02/20 01/03/20 01/04/20 11:59 11:59 11:59 11:59 Intake Total 690 / 690 860 / 860 3019 / 3019 2683 / 2683 Output Total 800 / 800 800 / 800 850 / 850 1400 / 1400 Balance -110 / -110 60 / 60 2169 / 2169 1283 / 1283 Weight 125 lb 5 oz 129 lb 5 oz 137 lb 3 oz Microbiology Reports for the Last 24 Hours: Microbiology 12/31/19 19:57 Throat Group A Streptococcus Screen (ODALYS) - Final Negative for Group A Streptococcus. 12/31/19 19:57 Urine,Clean Catch Urine Culture - Final Multiple organisms, suggests contamination. Narrative: Alert and oriented. Oropharynx clear. No JVD. Lungs sound surprisingly good. Good air movement. Heart rate regular without murmurs. Abdomen soft. No rash, moving all extremities well. Neurologic exam intact. Assessment and Plan (1) COVID-19 Current visit: Yes Status: Acute Category: Medical Code(s): U07.1 - COVID- 19 (2) Hypokalemia Current visit: Yes Status: Acute Category: Medical Code(s): E87.6 - Hypokalemia (3) UTI (urinary tract infection) Current visit: Yes Status: Acute Qualifiers: Urinary tract infection type: site unspecified Hematuria presence: without hematuria Qualified Code(s): N39.0 - Urinary tract infection, site not specified Category: Medical Code(s): N39.0 - Urinary tract infection, site not specified (4) Sepsis Current visit: Yes Status: Acute Category: Medical Code(s): A41.9 - Sepsis, unspecified organism - Assessment and plan all Dx Assessment and Plan for all problems:: Patient seems to be doing well. Continue to monitor oxygen and activity levels. She has multiple medical problems and is frail, her also has coronavirus 19 but seems to be doing well as an outpatient. PT/OT evaluation for home safety and activity evaluation for possible home health referral in the event of discharge tomorrow if she remains stable.
--- NOTE | 2020-01-04 08:49 | P.PN_ITS ---
Internal Medicine - PN: Subj *Date: 01/04/20 *Time: 08:49 Exam Vital signs and Labs for Last 24 Hours: Temp Pulse Resp BP Pulse Ox 97.7 F 48 L 20 143/68 H 91 L 01/04/20 04:43 01/04/20 04:43 01/04/20 04:43 01/04/20 04:43 01/04/20 04:43 Laboratory Results - last 24 hr 01/04/20 05:00: WBC 14.3 H, RBC 3.51 L, Hgb 12.0 L, Hct 35.2 L, MCV 100.4 H, MCH 34.1 H, MCHC 33.9, RDW 14.7, Plt Count 174, MPV 10.4, Neut % (Auto) 83.0 H, Lymph % (Auto) 9.9 L, [place] % (Auto) 6.6, Eos % (Auto) 0.1, Baso % (Auto) 0.2, Neut # (Auto) 11.9 H, Lymph # (Auto) 1.4, [place] # (Auto) 1.0, Eos # (Auto) 0.0, Baso # (Auto) 0.0 01/04/20 05:00: Sodium 141, Potassium 3.4 L, Chloride 109 H, Carbon Dioxide 26, Anion Gap 9.4, BUN 17, Creatinine 0.50 L, Estimated Creat Clear 42, Estimated GFR 118, Est GFR ( Amer) 143, Glucose 105 H, Calcium 8.3 L, Magnesium 1.8, Total Bilirubin 0.2, AST 58 H, ALT 60, Alkaline Phosphatase 61, C-Reactive Protein 20.9 H, Total Protein 5.7 L, Albumin 2.8 L, Globulin 2.9, Albumin/Globulin Ratio 1.0 L I & O for Last 24 hours: Intake & Output 01/01/20 01/02/20 01/03/20 01/04/20 23:59 23:59 23:59 23:59 Intake Total 1450 / 1450 2519 / 2519 2583 / 2583 700 / 700 Output Total 1600 / 1600 650 / 850 700 / 700 900 / 900 Balance -150 / -150 1869 / 1669 1883 / 1883 -200 / -200 Weight 56.841 kg 58.655 kg 63.957 kg 62.227 kg Microbiology Reports for the Last 24 Hours: Microbiology 12/31/19 19:57 Throat Group A Streptococcus Screen (ODALYS) - Final Negative for Group A Streptococcus. 12/31/19 19:57 Urine,Clean Catch Urine Culture - Final Multiple organisms, suggests contamination. Assessment and Plan (1) COVID-19 Current visit: Yes Status: Acute Category: Medical Code(s): U07.1 - COVID- 19 (2) Hypokalemia Current visit: Yes Status: Acute Category: Medical Code(s): E87.6 - Hypokalemia (3) UTI (urinary tract infection) Current visit: Yes Status: Acute Qualifiers: Urinary tract infection type: site unspecified Hematuria presence: without hematuria Qualified Code(s): N39.0 - Urinary tract infection, site not specified Category: Medical Code(s): N39.0 - Urinary tract infection, site not specified (4) Sepsis Current visit: Yes Status: Acute Category: Medical Code(s): A41.9 - Sepsis, unspecified organism The patient's infection will respond to the chosen ABx?: Yes (EMPIRIC COVERAGE) Is the patient receiving the right drug, dose, and route?: Yes Could a more targeted ABx be ordered?: No (URINE CULTURE CONTAMINATED)
--- NOTE | 2020-01-04 09:51 | HMH.OTEV ---
OT Inpatient Evaluation Rehab OT IP Evaluation Start: 01/04/20 07:59 Freq: ONCE Status: Complete Protocol: Document 01/04/20 09:44 KIRSTINELBERON (Rec: 01/04/20 09:51 [facility] [id number]) Rehab OT IP Assessment Subjective History Pt oriented x 3 on arrival. Pt agreeable to engage in therapy evaluation. Pt was admitted via ED on 01/01/20. Pt came to ER due to worsening back pain, nausea, and difficulty with functional abilities. Pt was febrile and tachycardic on arrival and tested positive for COVID19. She suspects she was exposed by son in law on 12/22/19. Pt reports normally she lives at home with her in a two story home. Usually she is able to complete all ADLs and IADLs independently. She does use a can during ambulation at times. Pt's home is two levels and she has 12 steps to go up in order to get to her bedroom and bathroom. Pt reports she wants to go home with . Subjective I'm doing good I think. Objective Patient Orientation Person,Place,Birthday Upper Extremity Gross ROM WFL Transfer Training Sit/Stand Transfer Assist Level Contact Guard/Hand Hold Chair Transfer Ability Contact Guard/Hand Hold Chair Transfer Technique Sit to/from Ambulatory Chair Transfer Assistive Devices None Performing Toilet Hygiene Ability Standby Assistance Overall Commode/Toilet Transfer Ability Assistance x1 Commode/Toilet Transfer Technique Sit to/from Ambulatory Rehab OT IP prob,goals,plan Problems Date of Evaluation: 01/04/20 OT IP Problems Bed Mobility,Transfers,Gait, Balance,Self care,Safety Rehab Potential Rehab Potential Good Equipment Needs Assistive Devices Straight Cane Plan OT intervention Plan Bed Mobility,Transfers,Gait, Balance,Self care,Safety, Therapeutic Exercise OT Plan Frequency Daily Duration LOS Discharge Goals Bed Mobility Ability Standby Assistance Sit to Stand Chair Transfer Ability Supervision/Stand by Chair Transfer Ab
--- NOTE | 2020-01-04 11:03 | HMH.PULMCON ---
*Admission Date: 01/01/20 *Reason for consult:: COVID-19 positive test (U07.1, COVID-19) with Acute Pneumonia (J12.89, Ot *History of present illness: Ms. Kaur is a 84-year-old female history of chronic back pain from her prior back surgery was presented to the ER with with worsening back pain, fatigue and shortness of breath. Patient has uncovered exposure from her son-in-law and on presentation her IV IgG was positive for COVID-19 serologies and her nasal MRSA PCR also resulted positive. Patient remained stable throughout the hospital course requiring nasal cannula oxygen supplementation at 2 to 3 L. Pulmonary was consulted today for further management. Patient is a never smoker, denies any respiratory issues, denies any shortness of breath or exertional dyspnea prior to this hospital presentation. , [facility] History Medical History: Reports:: Aneurysm, Anxiety, Depression, Hyperlipidemia, Hypertension Denies:: Cancer, Diabetes Mellitus Type 1, Diabetes Mellitus Type 2, MRSA *Have you ever received a pneumonia vaccine?: Yes *Have you received a flu vaccine this season?: Yes Other Medical History: Reports: Arthritis, Cataracts Laterality Cases: Right: Mastectomy, Bilateral: Other Other Surgeries: Yes: Colonoscopy, , Tubal Ligation, Other Amputation: No Fractures: Yes - *Social History Last grade of school completed: 11th or 12th Smoking Status: Former smoker Alcohol Intake: never *Occupational Status:: retired Housing: [facility] Household Members: spouse *Travel in the last 8 weeks: None - Psychiatric History Pschychiatric History:: Reports:: Anxiety, Depression Family Hx:: Unable to obtain [facility] Pulmonology ROS - Review of Systems Review of systems:: other - Constitutional Reports body ache(s), Reports weakness - *Cardiovascular Reports shortness of breath, Reports shortness of breath with activity - *Respiratory Respiratory: Yes chest congestion, Yes non-productive cough, Yes dyspnea on exertion - *Gastrointestinal Gastrointestingal: Reports: system reviewed and no additional complaints, except as docu - *Musculoskeletal Musculoskeletal: Reports back pain - *Neurologic Reports weakness, Denies headache(s), Denies seizure-like activity - Endocrine Denies cold intolerance - Hematologic/Lymphatic Denies easy bleeding Meds Home Medications Medication Instructions Recorded Confirmed Type Meclizine HCl [Meclizine 25mg Tab] 25 mg PO QIDP PRN #25 tab 09/19/17 12/31/19 Rx alprazolam 0.25 mg tablet 0.25 mg PO DAILY 04/10/18 01/01/20 History atorvastatin 40 mg tablet 40 mg PO DAILY 04/10/18 12/31/19 History calcium carbonate 200 mg calcium 200 mg PO BID tab 04/10/18 12/31/19 History (500 mg) chewable tablet omeprazole 20 mg capsule,delayed 20 mg PO DAILY 04/10/18 12/31/19 History release vitamins A,C,K-seca-pxajch 14,320 1 cap PO BID 04/10/18 12/31/19 History unit-226 mg-200 unit capsule Cholecalciferol (Vitamin D3) 1,000 unit PO DAILY 01/01/20 01/01/20 History [Vitamin D3 1,000 Unit Cap] Allergies Allergy/AdvReac Type Severity Reaction Status Date / Time No Known Allergies Allergy Verified 04/29/19 09:33 Exam Vital signs and Labs for Last 24 Hours: Temp Pulse Resp BP Pulse Ox 98.0 F 56 L 18 147/75 H 93 L 01/04/20 08:00 01/04/20 08:00 01/04/20 08:00 01/04/20 08:00 01/04/20 08:00 Laboratory Results - last 24 hr 01/04/20 05:00: WBC 14.3 H, RBC 3.51 L, Hgb 12.0 L, Hct 35.2 L, MCV 100.4 H, MCH 34.1 H, MCHC 33.9, RDW 14.7, Plt Count 174, MPV 10.4, Neut % (Auto) 83.0 H, Lymph % (Auto) 9.9 L, [place] % (Auto) 6.6, Eos % (Auto) 0.1, Baso % (Auto) 0.2, Neut # (Auto) 11.9 H, Lymph # (Auto) 1.4, [place] # (Auto) 1.0, Eos # (Auto) 0.0, Baso # (Auto) 0.0 01/04/20 05:00: Sodium 141, Potassium 3.4 L, Chloride 109 H, Carbon Dioxide 26, Anion Gap 9.4, BUN 17, Creatinine 0.50 L, Estimated Creat Clear 42, Estimated GFR 118, Est GFR ( Amer) 143, Glucose 105 H, Calcium 8.3 L, Mag
--- NOTE | 2020-01-04 12:04 | HMH.PTEV ---
Physical Therapy Evaluation Rehab PT IP Evaluation Start: 01/04/20 07:59 Freq: ONCE Status: Active Protocol: Document 01/04/20 11:58 PWRITU (Rec: 01/04/20 12:03 PWRITU [id number]) Subjective/History History History This is the intiial IP PT evalaution for Kellie Kaur. Pt is an 84 y/o female admitted to [facility] for UTI. Pt did test positive for COVID. Pt has IgG, her is positive as well. Pt lives in a 2 story apartment w/12 steps inside to bedroom. Prior to Pt admittance pt was mostly I w/ ADL's Subjective Subjective Pt reports no complaints Rehab PT IP Eval Objective Appearance Patient Behavior Appropriate,Cooperative Patient Orientation Person,Place,Time Difficulty following instructions none Speech Pattern Clear,Appropriate Ambulation Patient Able to Ambulate Yes Ambulation Observation IP General Gait Pattern Observation Shuffling Step Ambulation Distance (feet) 10 Ambulation Assistive Device None Ambulation Ability Contact Guard/Hand Hold Balance Ability to Arise Able, uses arms to help Sitting Balance Steady, safe Standing Balance Steady, wide stance Dynamic Sitting Balance Ability Good Dynamic Standing Balance Ability Fair Transfers Bed Transfer Ability Supervision/Stand by Chair Transfer Ability Supervision/Stand by Sit to Stand Bed Transfer Ability Supervision/Stand by,Contact Guard/Hand Hold Sit to Stand Chair Transfer Ability Supervision/Stand by,Contact Guard/Hand Hold ROM All Extremities PT ROM Status WFL MMT All Extremities PT MMT WFL Rehab PT IP prob,goals,plan Problems Date of Evaluation: 01/04/20 PT IP Problems Gait Rehab Potential Rehab Potential Fair Equipment Needs Assistive Devices None / NA Plan PT Intervention Plan Transfers,Gait,Therapeutic Exercise PT Plan Frequency BID Duration LOS Discharge Goals Bed Transfer Ability Independent Sit to Stand Chair Transfer Ability Supervision/Stand by Ambulation Assistive Device Straight Cane,Rolling Walker Ambulation Distance (feet) 25 Discharge Plan PT Discharge Plan pt safe to be dc'd home once mediclly stable - due to pt's
--- NOTE | 2020-01-04 12:04 | HMH.PTEV ---
Physical Therapy Evaluation Rehab PT IP Evaluation Start: 01/04/20 07:59 Freq: ONCE Status: Active Protocol: Document 01/04/20 11:58 PWRITU (Rec: 01/04/20 12:03 PWRITU [id number]) Subjective/History History History This is the intiial IP PT evalaution for Kellie Kaur. Pt is an 84 y/o female admitted to [facility] for UTI. Pt did test positive for COVID. Pt has IgG, her is positive as well. Pt lives in a 2 story apartment w/12 steps inside to bedroom. Prior to Pt admittance pt was mostly I w/ ADL's Subjective Subjective Pt reports no complaints Rehab PT IP Eval Objective Appearance Patient Behavior Appropriate,Cooperative Patient Orientation Person,Place,Time Difficulty following instructions none Speech Pattern Clear,Appropriate Ambulation Patient Able to Ambulate Yes Ambulation Observation IP General Gait Pattern Observation Shuffling Step Ambulation Distance (feet) 10 Ambulation Assistive Device None Ambulation Ability Contact Guard/Hand Hold Balance Ability to Arise Able, uses arms to help Sitting Balance Steady, safe Standing Balance Steady, wide stance Dynamic Sitting Balance Ability Good Dynamic Standing Balance Ability Fair Transfers Bed Transfer Ability Supervision/Stand by Chair Transfer Ability Supervision/Stand by Sit to Stand Bed Transfer Ability Supervision/Stand by,Contact Guard/Hand Hold Sit to Stand Chair Transfer Ability Supervision/Stand by,Contact Guard/Hand Hold ROM All Extremities PT ROM Status WFL MMT All Extremities PT MMT WFL Rehab PT IP prob,goals,plan Problems Date of Evaluation: 01/04/20 PT IP Problems Gait Rehab Potential Rehab Potential Fair Equipment Needs Assistive Devices None / NA Plan PT Intervention Plan Transfers,Gait,Therapeutic Exercise PT Plan Frequency BID Duration LOS Discharge Goals Bed Transfer Ability Independent Sit to Stand Chair Transfer Ability Supervision/Stand by Ambulation Assistive Device Straight Cane,Rolling Walker Ambulation Distance (feet) 25 Discharge Plan PT Discharge Plan pt safe to be dc'd home once mediclly stable - due to pt's
--- NOTE | 2020-01-04 18:22 | PC.NURSE ---
A&OX4. PT HAS TOLERATED 2L NC WELL THROUGHOUT SHIFT. RESPIRATIONS REGULAR AND UNLABORED. FINE CRACKLES NOTED IN RUL. LUNG SOUNDS CLEAR IN BASES. NO COUGH NOTED. +2 PULSES NOTED THROUGHOUT. HAND CLAY BURNER EQUAL. NO EDEMA NOTED. ACTIVE BOWEL SOUNDS HEARD IN ALL 4 QUADRANTS. SOFT AND NONTENDER ABDOMEN. PT HAS HAD 3 LOOSE BMS THIS SHIFT. PT VOIDS PER BSC W STANDBY ASSIST. CLEAR YELLOW URINE NOTED. PT HAS BEEN ENCOURAGED TO USE TO INCENTIVE SPIROMETER 10 TIMES EVERY HOUR WHILE AWAKE. LR INFUSING AT 100ML/HR. PT HAS BEEN UP IN THE CHAIR FOR EVERY MEAL AND HAS STAYED UP A HOUR TO HOUR AND A HALF EACH TIME. NO COMPLAINTS OF PAIN OR SOB THROUGHOUT SHIFT. PT RECEIVED BED BATH AND LINEN CHANGE. PT TOLERATED WELL. PT IS RESTING IN BED AT THIS TIME. CALL LIGHT WITHIN REACH. VSS. WILL CONTINUE TO MONITOR.
[2020-01-05] VITALS: BP 148/84; PULSE 57; PULSE 60; RESP 17; TEMP 36.6; O2SAT 90
[2020-01-05 04:00] VITALS: BP 165/87; PULSE 50; PULSE 55; RESP 18; TEMP 36.7; O2SAT 92
[2020-01-05 05:00] VITALS: BMI 28.3
--- NOTE | 2020-01-05 06:36 | PC.NURSE ---
shift summary, pt has rested well t/o shift, used BSC with standby assist t/o shift, fine crackles still present in right bases, respiratory rate between 17-18 t/o shift, sats on 2 L NC remained 90-92%, pt denies SOA, breathing remains unlabored
--- NOTE | 2020-01-05 07:04 | P.PN_ITS ---
Internal Medicine - PN: Subj *Date: 01/05/20 *Time: 07:04 Interval history: Remained stable overnight on 2 L nasal cannula oxygen. Ambulating to bedside commode without assistance at this time. Tolerating p.o. intake. Overall showing general improvement clinically. Exam Vital signs and Labs for Last 24 Hours: Temp Pulse Resp BP Pulse Ox 98.1 F 55 L 18 165/87 H 92 L 01/05/20 04:00 01/05/20 04:00 01/05/20 04:00 01/05/20 04:00 01/05/20 04:00 I & O for Last 24 hours: Intake & Output 01/02/20 01/03/20 01/04/20 01/05/20 23:59 23:59 23:59 23:59 Intake Total 2519 / 2519 2583 / 2583 2750 / 2750 1000 / 1000 Output Total 650 / 850 700 / 700 1353 / 1653 1100 / 1100 Balance 1869 / 1669 1883 / 1883 1397 / 1097 -100 / -100 Weight 58.655 kg 63.957 kg 62.227 kg 63.645 kg Assessment and Plan (1) COVID-19 Current visit: Yes Status: Acute Category: Medical Code(s): U07.1 - COVID- 19 (2) Hypokalemia Current visit: Yes Status: Acute Category: Medical Code(s): E87.6 - Hypokalemia (3) UTI (urinary tract infection) Current visit: Yes Status: Acute Qualifiers: Urinary tract infection type: site unspecified Hematuria presence: without hematuria Qualified Code(s): N39.0 - Urinary tract infection, site not specified Category: Medical Code(s): N39.0 - Urinary tract infection, site not specified (4) Sepsis Current visit: Yes Status: Acute Category: Medical Code(s): A41.9 - Se psis, unspecified organism
[2020-01-05 07:43] LABS: Chloride 102 mmol/L (98-107); Potassium 3.2 mmoL/L (3.5-5.1); Sodium 142 mmol/L (136-145)
[2020-01-05 07:46] LABS: Alanine Aminotransferase 70 U/L (12-78); Albumin Level 3.3 g/dl (3.5-5.0); Alkaline Phosphatase 78 U/L (38-126); Anion Gap 11.2 mEq/L (5-15); Aspartate Amino Transferase 62 U/L (14-36); Bilirubin,Total 0.5 mg/dl (0.2-1.3); Blood Urea Nitrogen 12 mg/dl (7-17); Calcium 8.8 mg/dl (8.4-10.2); Carbon Dioxide 32 mmol/L (22.0-30.0); Creatinine Clearance Estimated 43 mL/min (50-200); Estimated Glomerular Filt Rate 118 ml/min (>60); GFR (African American) 143 ML/MIN (>60); Globulin 3.2 g/dL (1.3-3.2); Glucose 91 mg/dl (74-100); Total Protein,Serum 6.5 g/dl (6.3-8.2)
[2020-01-05 07:56] LABS: Basophils # 0.1 K/mm3 (0-0.2); Basophils % 0.5 % (0.1-2.0); Eosinophils % 0.2 % (0.1-12.0); Hematocrit 41.3 % (37.0-47.0); Hemoglobin 14.5 g/dL (12.2-16.2); Lymphocytes # 1.8 K/mm3 (0.7-4.5); Lymphocytes % 12.3 % (10-50); Mean Corpuscular Hemoglobin 34.6 pg (27.0-31.2); Mean Corpuscular Volume 98.8 fl (81-99); Mean Platelet Volume 10.4 fl (7.4-10.4); Monocytes # 1.2 K/mm3 (0.1-1.0); Monocytes % 7.7 % (1.7-9.3); Neutrophils # 11.9 K/mm3 (1.8-7.8); Neutrophils % 79.4 % (37.0-80.0); Platelet Count 228 K/mm3 (142-424); Red Blood Count 4.18 M/mm3 (4.20-5.40); Red Cell Distribution Width 14.5 % (11.5-17.5)
[2020-01-05 08:00] VITALS: BP 141/78; PULSE 79; PULSE 80; RESP 18; TEMP 37.1; O2SAT 91
[2020-01-05 08:06] LABS: MANUAL DIFFERENTIAL MANUAL DIFFERENTIAL (MANUAL DIFF)
[2020-01-05 08:27] LABS: C-Reactive Protein 19.2 mg/L (0-4)
--- NOTE | 2020-01-05 08:30 | HMH.PULMPN ---
Internal Medicine - PN: Subj *Date: 01/05/20 *Time: 09:35 Interval history: Patient denies any new complaints. No acute events overnight. Patient only complains of cough with intermittent productive phlegm. Respiratory status stable, patient on 2 L nasal cannula saturating 92 to 94% Exam Vital signs and Labs for Last 24 Hours: Temp Pulse Resp BP Pulse Ox 98.1 F 55 L 18 165/87 H 92 L 01/05/20 04:00 01/05/20 04:00 01/05/20 04:00 01/05/20 04:00 01/05/20 04:00 Laboratory Results - last 24 hr 01/05/20 05:50: Sodium 142, Potassium 3.2 L, Chloride 102, Carbon Dioxide 32 H D, Anion Gap 11.2, BUN 12 D, Creatinine 0.50 L, Estimated Creat Clear 43, Estimated GFR 118, Est GFR ( Amer) 143, Glucose 91, Calcium 8.8, Total Bilirubin 0.5, AST 62 H, ALT 70, Alkaline Phosphatase 78, Total Protein 6.5, Albumin 3.3 L D, Globulin 3.2, Albumin/Globulin Ratio 1.0 L 01/05/20 05:50: WBC 15.0 H, RBC 4.18 L, Hgb 14.5, Hct 41.3, MCV 98.8, MCH 34.6 H, MCHC 35.0, RDW 14.5, Plt Count 228 D, MPV 10.4, Neut % (Auto) 79.4, Lymph % (Auto) 12.3, [place] % (Auto) 7.7, Eos % (Auto) 0.2, Baso % (Auto) 0.5, Neut # (Auto) 11.9 H, Lymph # (Auto) 1.8, [place] # (Auto) 1.2 H, Eos # (Auto) 0.0, Baso # (Auto) 0.1 I & O for Last 24 hours: Intake & Output 01/02/20 01/03/20 01/04/20 01/05/20 23:59 23:59 23:59 23:59 Intake Total 2519 / 2519 2583 / 2583 2750 / 2750 1000 / 1000 Output Total 650 / 850 700 / 700 1353 / 1653 1300 / 1300 Balance 1869 / 1669 1883 / 1883 1397 / 1097 -300 / -300 Weight 129 lb 5 oz 141 lb 137 lb 3 oz 140 lb 5 oz - Constitutional mild distress - *Routine Neck Exam Present: supple, full ROM. Absent: JVD - *Routine Respiratory Exam Present: rhonchi. Absent: accessory muscle use - *Routine Cardiovascular Exam Present: Normal S1, Normal S2 - *Routine Abdominal Exam Present: soft, normoactive bowel sounds. Absent: tenderness, distended, rebound - *Routine Extremities Exam Absent: cyanosis, clubbing, edema Assessment and Plan (1) COVID-19 Current visit: Yes Status: Acute Category: Medical Code(s): U07.1 - COVID-19 (2) Hypokalemia Current visit: Yes Status: Acute Category: Medical Code(s): E87.6 - Hypokalemia (3) UTI (urinary tract infection) Current visit: Yes Status: Acute Qualifiers: Urinary tract infection type: site unspecified Hematuria presence: without hematuria Qualified Code(s): N39.0 - Urinary tract infection, site not specified Category: Medical Code(s): N39.0 - Urinary tract infection, site not specified (4) Sepsis Current visit: Yes Status: Acute Category: Medical Code(s): A41.9 - Sepsis, unspecified organism - Assessment and plan all Dx Assessment and Plan for all problems:: #Acute hypoxic respiratory failure: #COVID-19 pneumonia: 84-year-old with no prior respiratory complaints recent cold exposure presented to the hospital with worsening low back pain, urinary tract infection and worsening respiratory failure on her nasal PCR for COVID-19 resulted positive. Influenza panel negative. Patient on this hospital admission received treatment with ceftriaxone for presumed UTI and community-acquired pneumonia along with dexamethasone. Afebrile, however Worsening leukocytosis, chest x-ray from 01/02 showed slight worsening of right upper lobe pulmonary infiltrate. As oxygen requirements improved, down to 2 L nasal cannula now, will continue current therapy along with adding azithromycin for atypical coverage. We will closely monitor respiratory status Plan: - ContineRemdesevir for a total of 5 days - Consider adding azithromycin for atypical coverage for a total of 5 days. If discharging the patient, change antibiotics to levofloxacin to complete a total of 7-day course -Continue dexamethasone until discharge -DuoNebs every 6 hours as needed while inpatient please discharge the patient on albuterol as needed inhaler -Evaluate the need for oxygen requirement befo
[2020-01-05 08:54] LABS: Lymphocytes % 22 % (10-50); Monocytes % 6 % (2-9); Neutrophils % 72 % (42-76); Platelet Estimate Normal; RBC Morphology Normal; Total Cells Counted 100
--- NOTE | 2020-01-05 09:55 | PC.NURSE ---
Room air O2 saturation noted to be 86% at this time.
--- NOTE | 2020-01-05 10:58 | HMH.DCSUM ---
General - General Admission date:: 01/01/20 Discharge date: 01/05/20 HPI HPI: 84-year-old female with history of chronic back pain, worsening fatigue, difficulty getting into her home yesterday due to severity of pain. Was brought to the ER via EMS due to her back pain and nausea. On arrival found to be febrile and tachycardic. Initial work-up concerning for UTI and was initiated on broad-spectrum antibiotics. Admission labs found her to be positive for COVID-19 IgG. Of note, she has been around her son-in-law who was positive for COVID-19, last exposure 12/22/2019. Patient has had some worsening fatigue and ache in her back starting over this past weekend. Minimal dry nonproductive cough as well. Denies dyspnea, diarrhea, chest pain. This morning given her cough, positive IgG for COVID-19, and exposure risk, nasal/respiratory PCR obtained showing her to be positive for COVID-19. Transition to respiratory isolation unit for further management. Pleasant and interactive on exam this morning Hospital Course Hospital Course: Ms. Kaur was initially admitted for back pain and concern for UTI. Found to have COVID-19 along with her new oxygen requirement. Was cared for during her stay in the isolation unit. Initiated on COVID-19 protocol including remdesivir, completed 5 days, dexamethasone, and high-dose multivitamin including vitamin C, zinc, vitamin D. Progressed well during her hospitalization requiring no more than 4 L nasal cannula oxygen. Able to wean to 2 L nasal cannula by final day of remdesivir treatment. Patient has been eating well during her hospitalization. Back pain is remained stable. Was assessed by physical therapy and would benefit from home health PT. Also will need oxygen to go home with given her persistent O2 requirement. Pulmonology was consulted during her hospitalization with plan for follow-up as follows. We will see her/follow closely in the outpatient setting. Plan: - Consider adding azithromycin for atypical coverage for a total of 5 days. If discharging the patient, change antibiotics to levofloxacin to complete a total of 7-day course -DuoNebs every 6 hours as needed while inpatient please discharge the patient on albuterol as needed inhaler -Evaluate the need for oxygen requirement before discharge -Follow-up in pulmonary clinic 4 weeks after discharge with full PFTs and 6-minute walk testing Objective Vital signs: Temp Pulse Resp BP Pulse Ox 98.7 F 79 18 141/78 H 91 L 01/05/20 08:00 01/05/20 08:00 01/05/20 08:00 01/05/20 08:00 01/05/20 08:00 Narrative: - Constitutional NAD on NC O2 2L, average body habitus, chronically ill appearing - *Routine HEENT Exam Head: Present: normocephalic Eye: Present: EOMI, PERRL ENT: Present: mucous membranes moist - *Routine Neck Exam Present: supple. Absent: lymphadenopathy - *Routine Respiratory Exam Present: Crackles improved. good airmovement, rales, wheezes Chest: s/p mastectomy on right (POA) - *Routine Cardiovascular Exam Present: RRR - *Routine Abdominal Exam Present: soft, normoactive bowel sounds, tenderness (Diffuse nonfocal) - *Routine Extremities Exam Absent: cyanosis, clubbing, edema - Routine Back/Spine/Pelvis Exam Back/Spine: Present: paraspinal tenderness, vertebral tenderness (Lumbar). Absent: CVA tenderness - *Routine Skin Exam Present: warm. Absent: rash - *Routine Neurological Exam Present: alert, oriented X3, tremors Results Labs on day of discharge: Labs from last 24 hours 01/05/20 01/05/20 01/05/20 05:50 05:50 05:50 WBC 15.0 H RBC 4.18 L Hgb 14.5 Hct 41.3 MCV 98.8 MCH 34.6 H MCHC 35.0 RDW 14.5 Plt Count 228 D MPV 10.4 Neut % (Auto) 79.4 Lymph % (Auto) 12.3 [place] % (Auto) 7.7 Eos % (Auto) 0.2 Baso % (Auto) 0.5 Neut # (Auto) 11.9 H Lymph # (Auto) 1.8 [place] # (Auto) 1.2 H Eos # (Auto) 0.0 Baso # (A
[2020-01-05 12:00] VITALS: PULSE 80
[2020-01-05 12:03] VITALS: BP 115/74; PULSE 74; RESP 16; TEMP 37.1; O2SAT 90
--- NOTE | 2020-01-05 14:01 | SW/DCPLANNER ---
RECEIVED REFERRAL FOR THIS PATIENT TO HAVE 02 WHEN DISCHARGED FROM [facility] FOR RESPIRATORY MONITORING, PT/OT EVAL FOR HOME SAFETY AND STRENGTHENING. THIS WAS SET UP WITH [facility] PER PATIENT CHOICE.. I DID A FOLLOW UP CALL AND PATIENT WILL BE SEEN IN THE AM.. HER 02 TANK WAS ALSO DELIVERED BY [facility]...
== END 2020-01-05 14:45 | disposition home health service (06) | DRG 177 ==
LOC: ER 21:44 → 2ND 23:30 → ICU 01-01 12:01
PROVIDERS: Admitting Provider Family Medicine; Emergency Provider Emergency Medicine; PCP Internal Medicine Adolescent Medicine; Visit Provider Internal Medicine Adolescent Medicine
DX: U07.1 COVID-19 (principal); J12.89 Other viral pneumonia; J96.01 Acute respiratory failure with hypoxia; N39.0 Urinary tract infection, site not specified; R65.10 Systemic inflammatory response syndrome (SIRS) of non-infectious origin without acute organ dysfunction; I10 Essential (primary) hypertension; E78.5 Hyperlipidemia, unspecified; Z87.891 Personal history of nicotine dependence; E87.6 Hypokalemia; Z79.899 Other long term (current) drug therapy; E03.9 Hypothyroidism, unspecified
CPT/HCPCS: 71045; 80048; 80053; 81001; 83605; 83735; 85007; 85025; 86140; 86328; 87040; 87086; 87275; 87276; 87430; 96365; 96367; 96375; 97110; 97116; 97162; 97166; 97535; 99285; G0378; J2405; U0003; U0004

== ENCOUNTER → 2020-03-25 09:06 | Outpatient (CLI) | payer MEDICARE, OTHER, SELFPAY ==
--- NOTE | 2020-03-25 09:18 | MM_ITS ---
PROCEDURE: MM DIG SCREENING MAMM BI W/CAD Digital Breast Tomosynthesis Included CLINICAL INDICATION: SCREENING There is a history of previous right mastectomy 46 years ago. There is a history of breast cancer in the patient's sister as well. COMPARISON: No exams were available for comparison TECHNIQUE: Standard CC and MLO images and 3D Tomosynthesis was obtained. R2 CAD reviewed. FINDINGS: Moderate somewhat heterogenic fibroglandular densities are seen in the central portions of the breast. There is faint arterial calcification. There is no suspicious lesion and no suspicious microcalcifications. There are couple normal appearing nodes in the axilla. IMPRESSION: BI-RAD Cat 1-moderate breast density with no suspicious lesions seen gory: 1 Negative FOLLOW-UP: 1YR 1 Year Follow-up (A letter has been sent to the patient regarding results of the study.) Dictated by: Dr. Trung Martinez MD 04/25/2020 11:52 Dr. Trung Martinez MD in [place] 04/25/2020 11:52
== END ==
PROVIDERS: PCP Internal Medicine Adolescent Medicine; Visit Provider Internal Medicine Adolescent Medicine
DX: Z12.31 Encounter for screening mammogram for malignant neoplasm of breast (principal)
CPT/HCPCS: 77063; 77067

== ENCOUNTER → 2021-01-16 17:37 | Outpatient (CLI) | payer MEDICARE, OTHER, SELFPAY ==
[2021-01-16 19:26] LABS: Alanine Aminotransferase 55 U/L (12-78); Albumin Level 4.1 g/dl (3.5-5.0); Albumin/Globulin Ratio 1.2 (1.1-1.8); Alkaline Phosphatase 84 U/L (38-126); Anion Gap 9.6 mEq/L (5-15); Aspartate Amino Transferase 73 U/L (14-36); Bilirubin,Total 0.4 mg/dl (0.2-1.3); Blood Urea Nitrogen 13 mg/dl (7-17); Calcium 9.4 mg/dl (8.4-10.2); Carbon Dioxide 30 mmol/L (22.0-30.0); Chloride 105 mmol/L (98-107); Chol/HDL Ratio 2.8 (1-3.5); Cholesterol 187 mg/dl (140-200); Estimated Glomerular Filt Rate 118 ml/min (>60); GFR (African American) 142 ML/MIN (>60); Globulin 3.4 g/dL (1.3-3.2); Glucose 105 mg/dl (74-100); HDL Cholesterol 68 mg/dl (40-60); Potassium 3.6 mmoL/L (3.5-5.1); Sodium 141 mmol/L (136-145); Total Protein,Serum 7.5 g/dl (6.3-8.2); Triglycerides 229 mg/dl (30-150); VLDL Cholesterol 46 mg/dL (0-40)
[2021-01-16 19:35] LABS: Basophils # 0.1 K/mm3 (0-0.2); Basophils % 1.1 % (0.1-2.0); Eosinophils # 0.3 K/mm3 (0.0-0.4); Eosinophils % 3.9 % (0.1-12.0); Hematocrit 42.9 % (37.0-47.0); Hemoglobin 14.2 g/dL (12.2-16.2); Lymphocytes # 2.7 K/mm3 (0.7-4.5); Lymphocytes % 35.5 % (10-50); Mean Corpuscular Hemoglobin 33.5 pg (27.0-31.2); Mean Corpuscular Volume 101.3 fl (81-99); Mean Platelet Volume 9.3 fl (7.4-10.4); Monocytes # 0.8 K/mm3 (0.1-1.0); Neutrophils # 3.8 K/mm3 (1.8-7.8); Neutrophils % 49.6 % (37.0-80.0); Platelet Count 235 K/mm3 (142-424); Red Blood Count 4.23 M/mm3 (4.20-5.40); White Blood Count 7.6 K/mm3 (4.8-10.8)
[2021-01-16 19:36] LABS: Direct LDL Cholesterol 70.28 mg/dL (100-129)
== END ==
PROVIDERS: Visit Provider Internal Medicine Adolescent Medicine
DX: E78.2 Mixed hyperlipidemia (principal)
CPT/HCPCS: 80053; 80061; 85025

== ENCOUNTER → 2021-09-07 06:25 | Outpatient (CLI) | payer MEDICARE, OTHER, SELFPAY ==
[2021-09-07 13:57] LABS: Chloride 101 mmol/L (98-107); Sodium 140 mmol/L (136-145)
[2021-09-07 14:00] LABS: Alanine Aminotransferase 100 U/L (12-78); Albumin Level 4.2 g/dl (3.5-5.0); Albumin/Globulin Ratio 1.4 (1.1-1.8); Alkaline Phosphatase 74 U/L (38-126); Aspartate Amino Transferase 101 U/L (14-36); Basophils # 0.1 K/mm3 (0-0.2); Basophils % 1.5 % (0.1-2.0); Bilirubin,Total 0.4 mg/dl (0.2-1.3); Blood Urea Nitrogen 9 mg/dl (7-17); Calcium 9.8 mg/dl (8.4-10.2); Carbon Dioxide 31 mmol/L (22.0-30.0); Chol/HDL Ratio 2.4 (1-3.5); Cholesterol 160 mg/dl (140-200); Eosinophils # 0.5 K/mm3 (0.0-0.4); Eosinophils % 8.8 % (0.1-12.0); Estimated Glomerular Filt Rate 118 ml/min (>60); GFR (African American) 142 ML/MIN (>60); Globulin 3.1 g/dL (1.3-3.2); Glucose 99 mg/dl (74-100); HDL Cholesterol 68 mg/dl (40-60); Hematocrit 42.4 % (37.0-47.0); Hemoglobin 13.8 g/dL (12.2-16.2); Lymphocytes # 2.3 K/mm3 (0.7-4.5); Mean Corpuscular HGB Conc 32.5 g/dL (31.8-35.4); Mean Corpuscular Hemoglobin 33.7 pg (27.0-31.2); Mean Corpuscular Volume 103.6 fl (81-99); Mean Platelet Volume 9.6 fl (7.4-10.4); Monocytes # 0.6 K/mm3 (0.1-1.0); Monocytes % 9.7 % (1.7-9.3); Neutrophils # 2.5 K/mm3 (1.8-7.8); Platelet Count 216 K/mm3 (142-424); Red Blood Count 4.09 M/mm3 (4.20-5.40); Red Cell Distribution Width 14.1 % (11.5-17.5); Total Protein,Serum 7.3 g/dl (6.3-8.2); Triglycerides 109 mg/dl (30-150); VLDL Cholesterol 22 mg/dL (0-40)
[2021-09-07 14:11] LABS: Direct LDL Cholesterol 61.04 mg/dL (100-129)
== END ==
PROVIDERS: Visit Provider Nurse Practitioner Family
DX: Z00.00 Encounter for general adult medical examination without abnormal findings (principal); E78.2 Mixed hyperlipidemia; Z85.3 Personal history of malignant neoplasm of breast
CPT/HCPCS: 36415; 80053; 80061; 85025

== ENCOUNTER 2022-04-01 12:50 | Emergency (ER) | payer MEDICARE, OTHER, SELFPAY ==
[2022-04-01 12:50] VITALS: BP 153/70; PULSE 98; RESP 16; TEMP 36.8; O2SAT 97; BMI 25.0
[2022-04-01 13:00] VITALS: BMI 25.0
--- NOTE | 2022-04-01 13:01 | XR_ITS ---
PROCEDURE INFORMATION: Exam: XR Pelvis Exam date and time: 04/01/2022 1:22 PM Age: 86 years old Clinical indication: Injury or trauma; Blunt trauma (contusions or hematomas); Prior surgery; Patient HX: Fall. Pain in right hip and groin. TECHNIQUE: Imaging protocol: Radiologic exam of the pelvis. Views: 1 or 2 view. COMPARISON: CR XR LUMBAR SPINE MIN 4V 12/28/2019 1:44 PM FINDINGS: Bones/joints: Bones appear diffusely demineralized, suggesting osteopenia/osteoporosis. No focal lytic lesions. There is a curvilinear radiolucency through the medial aspect of the right inferior pubic ramus suspicious for hairline fracture, which could be [id number] injury as there is some chronic deformity of the inferior right pubic ramus, versus an overlying artifact. If this is the region of pain CT may help. Old healed left pubic bone fracture deformities. Chronic bilateral sacroiliitis with joint narrowing, spurs, periarticular sclerosis and vacuum phenomenon. Lower lumbar degenerative changes are incompletely imaged on this exam. Bilateral femur rods and screws which appear grossly intact with no loosening or infection as visualized, incompletely imaged on this exam. No dislocation at the hip joints. Soft tissues: No acute findings in the soft tissues. Some injection granulomas. Some atherosclerotic calcified plaques in the femoral arteries. Some overlying clothing artifacts. IMPRESSION: 1. Question hairline fracture of the inferior right pubic ramus, possible [id number] injury, versus overlying artifact. If this is the region of pain or trauma, consider CT. 2. Old healed left pubic bone fracture deformities. 3. Bilateral sacroiliitis. Lumbar degenerative changes. 4. Bilateral femur hardware appears intact with no loosening or infection. 5. Osteopenia/osteoporosis.
--- NOTE | 2022-04-01 13:01 | XR_ITS ---
PROCEDURE INFORMATION: Exam: XR Right Femur Exam date and time: 04/01/2022 1:22 PM Age: 86 years old Clinical indication: Injury or trauma; Blunt trauma; Prior surgery; Patient HX: Fall. Pain in right hip and groin. TECHNIQUE: Imaging protocol: Radiologic exam of the Right femur. Views: 2 views. COMPARISON: CR XR KNEE RT 4V 04/29/2019 8:25 AM FINDINGS: Bones/joints: Bones appear overall demineralized. Old healed mid right femoral diaphyseal fracture deformity. Right femur sandro and multiple screws appear intact with no findings of loosening or infection of hardware. No fracture or dislocation seen at the hip or knee joints. Possible right inferior pubic ramus injury of indeterminate age is better seen on the pelvis x-ray images, please see the pelvis x-ray report. No focal lytic lesions. Soft tissues: No soft tissue emphysema. Mild soft tissue swelling. Vasculature: Atherosclerotic calcified plaques in the femoral artery. Other findings: Overlying clothing artifacts. IMPRESSION: 1. No acute fracture or dislocation in the femur. 2. Old healed femoral diaphyseal fracture deformity; femoral fixation hardware appears intact with no loosening or infection. 3. Osteopenia/osteoporosis, slightly limiting the study. 4. Atherosclerotic disease.
--- NOTE | 2022-04-01 13:08 | PC.NURSE ---
rad here to take pt for xrays
--- NOTE | 2022-04-01 13:11 | PC.NURSE ---
helped pt use bedpan, urine sample obtained
[2022-04-01 13:16] LABS: Microscopic, Urine URINE MICROSCOPIC (MICROSCOPIC)
[2022-04-01 13:21] LABS: Appearance,Urine CLEAR (Clear); Bilirubin,Urine Negative (Negative); Blood, Urine Negative (Negative); Color,Urine YELLOW (Yellow); Glucose,Urine (UA) Negative (Negative); Ketones,Urine Negative (Negative); Leukocyte Esterase,Urine 1+ (Negative); Nitrate,Urine Negative (Negative); Protein,Urine Negative (Negative); Urobilinogen,Urine 0.2 EU/dl (0.2)
--- NOTE | 2022-04-01 13:22 | PC.NURSE ---
pt back from radiology
[2022-04-01 13:35] VITALS: BP 171/88; PULSE 94; O2SAT 97
[2022-04-01 13:45] LABS: Bacteria,Urine Trace /lpf; Squamous Epithelial Cell,Urine Occasional #/hpf (0-5)
--- NOTE | 2022-04-01 13:55 | CT_ITS ---
PROCEDURE INFORMATION: Exam: CT Pelvis Without Contrast; Skeletal Exam date and time: 04/01/2022 2:04 PM Age: 86 years old Clinical indication: Injury or trauma; Fall; Blunt trauma (contusions or hematomas); Right; Groin; Additional info: Radioliogist recommends CT TECHNIQUE: Imaging protocol: Computed tomography of the pelvis without contrast. Exam focused on the skeleton. Radiation optimization: All CT scans at this facility use at least one of these dose optimization techniques: automated exposure control; mA and/or kV adjustment per patient size (includes targeted exams where dose is matched to clinical indication); or iterative reconstruction. COMPARISON: CR (PELVIS, PELVIS AP) 04/01/2022 1:22 PM FINDINGS: Bones/joints: Bones appear diffusely demineralized. There is an acute-appearing, minimally displaced 3 part fracture of the inferior right pubic ramus, see axial series 3, images 71 -74 . There is an old healed inferior left pubic ramus fracture deformity. No other acute fracture or dislocation is seen in pelvis. Chronic bilateral sacroiliitis with periarticular sclerosis, spurs and vacuum phenomenon, right greater than left. Mild chronic sacral deformity and transitional S1 segment with partial lumbarization on the right. Chronic-appearing sacral alar deformities, no acute sacral alar fracture line detected. Lower lumbar facet arthropathy, grade 1 degenerative anterolisthesis L5- S1 . No focal lytic lesions. No dislocation. Visualized bilateral femur hardware appears intact with no CT findings of loosening or infection. Soft tissues: There are no soft tissue masses or loculated fluid collections. Right obturator externus muscle swelling abutting the inferior right pubic ramus fracture consistent with adjacent muscle strain or contusion, but no organized hematoma. No adjacent bladder injury visible on this limited nonenhanced exam. No free intraperitoneal fluid or free air as visualized. Diverticulosis coli, no focal findings of acute diverticulitis. IMPRESSION: 1. Acute minimally comminuted fracture of the inferior right pubic ramus. 2. Right obturator externus muscle swelling abutting the pubic fracture, consistent with strain or contusion. No organized hematoma. 3. No other acute findings. 4. Old healed left pubic bone fracture deformities. 5. Lumbosacral degenerative changes, as above. 6. Visualized bilateral femur hardware appears intact. 7. No acute visceral injury or free fluid seen on this limited exam. 8. Additional nonemergency and chronic findings as above.
[2022-04-01 14:00] VITALS: BP 169/88; PULSE 90; O2SAT 97
--- NOTE | 2022-04-01 14:17 | PC.NURSE ---
pt back from rad
--- NOTE | 2022-04-01 14:31 | HMH.EDGENADL ---
Discharge Plan Disposition Patient Disposition: Home, Self-Care Condition: Good Prescriptions Prescriptions: New hydrocodone-acetaminophen 5-325 mg tablet 1 tab PO Q6H PRN (Reason: pain) Qty: 20 0RF No Action ICaps AREDS [id number] capsule 1 cap PO BID omeprazole 20 mg capsule,delayed release(DR/EC) 20 mg PO DAILY calcium carbonate [Tums] 200 mg calcium (500 mg) tablet,chewable 200 mg PO BID fluticasone propionate 50 mcg/actuation spray,suspension 2 spray intranasal DAILY Label Comments: INSTILL INTO EACH NOSTRIL DIRECTED EVERY DAY cyanocobalamin (vitamin B-12) 1,000 mcg capsule 1,000 mcg PO DAILY cetirizine 10 mg tablet 10 mg PO DAILY Label Comments: TAKE 1 TABLET BY MOUTH EVERY DAY alprazolam 0.25 mg tablet 0.25 mg PO DAILY Qty: 30 2RF cholecalciferol (vitamin D3) 1,000 UNIT capsule 1,000 unit PO DAILY ascorbic acid (vitamin C) 500 MG tablet 500 mg PO BID 30 Days Qty: 60 0RF zinc sulfate 220 MG capsule 220 mg PO DAILY 30 Days Qty: 30 0RF Referrals Follow up/Referrals: Israel Shankar MD [Primary Care Provider] - See instructions Ronald Win DO [Staff Physician] - See instructions Activity Restrictions/Add. Instructions Additional Instructions/Restrictions: Use walker to ambulate. [place] as needed for pain. Follow-up with orthopedics at [facility], call tomorrow for appointment. Additional instructions for CONTROLLED SUBSTANCES: You have been prescribed a medication that is a controlled substance. Controlled substances include pain medications known as opiates and sedative nerve medications known as benzodiazepines. Tramadol, fioricet, and gabapentin are also controlled substances. Some common opiates include: Codeine (such as Tylenol #3) Hydrocodone (Vicodin, Lortab, Lorcet, [place]) Oxycodone (Percocet, Percodan, Oxycodone, Oxy IR) Some common benzodiazepines include: Diazepam (Valium) Lorazepam (Ativan) Alprazolam (Xanax) Clonazepam (Klonopin) Oxazepam (Serax) All of these controlled substances are highly addictive and frequently abused. Misuse can and frequently does lead to addiction as well as overdose and . Medication should be stored in a locked cabinet or other secure storage unit. Do not store the medication in a motor vehicle. Short term supplies, 3 days or less, are prescribed because of the highly addictive nature of the medication. Any of the controlled substance medication NOT taken should be disposed of properly and NOT SAVED. The recommended method of disposing of unused medications is: Place the medicines in a sealable plastic bag. If the medicine is a solid, crush it or add water to dissolve it. Add something undesirable (cat litter, coffee grounds, etc.) Dispose of sealed bag in household trash Do not flush or pour unused medicines down a sink or drain. Controlled substances should not be shared, given away or sold. Because of the addictive nature and frequent abuse, these medications are sometimes stolen. These medications should be kept in a safe place where they cannot be stolen. Do not keep them in your car or purse. Lost or stolen prescriptions for controlled substances WILL NOT BE REFILLED in this emergency department, regardless of whether a police report was filed. Clinical Impressions Clinical Impression: Closed fracture of inferior pubic ramus Instructions Patient Instructions: How to Choose and Use a Walker, DI for Pelvic Fracture Discharge ED Provider: Alex Rios General Adult HPI General Chief complaint: Extremity Injury, Lower Stated complaint: PAIN Time Seen by Provider: 04/01/22 14:21 Mode of Arrival: EMS Source of Information: Patient Limitations: No Limitations Description of Symptoms (Recalled from ER Triage Doc. by RN): C/O right groin pain, pt states that she was coming out of [place] and thinks she tripped on her cane and fell
[2022-04-01 14:32] VITALS: BP 171/95; PULSE 92; O2SAT 95
--- NOTE | 2022-04-01 15:11 | PC.NURSE ---
pt ambulated around room with walker , she did great but does have a small amount of pain
--- NOTE | 2022-04-01 15:19 | PC.NURSE ---
pt sitting up in chair, getting ready to go home
[2022-04-01 15:40] VITALS: BP 138/87; PULSE 81; RESP 18; TEMP 36.8; O2SAT 94
--- NOTE | 2022-04-01 15:40 | PC.NURSE ---
Assisted pt in ambulating, with walker, to the restroom prior to discharge. CR
== END 2022-04-01 15:43 | disposition home or self-care (01) ==
PROVIDERS: Emergency Provider Emergency Medicine; PCP Family Medicine
DX: S32.591A Other specified fracture of right pubis, initial encounter for closed fracture (principal); M24.159 Other articular cartilage disorders, unspecified hip; M46.1 Sacroiliitis, not elsewhere classified; R12 Heartburn; M81.0 Age-related osteoporosis without current pathological fracture; I70.90 Unspecified atherosclerosis; Z79.1 Long term (current) use of non-steroidal anti-inflammatories (NSAID); Z79.51 Long term (current) use of inhaled steroids; Z79.899 Other long term (current) drug therapy; W01.0XXA Fall on same level from slipping, tripping and stumbling without subsequent striking against object, initial encounter
CPT/HCPCS: 72170; 72192; 73552; 81001; 87086; 99285

== ENCOUNTER → 2022-04-19 13:20 | Outpatient (CLI) | payer MEDICARE, OTHER, SELFPAY ==
--- NOTE | 2022-04-19 13:25 | XR_ITS ---
FINAL REPORT CLINICAL HISTORY: fracture F/U COMPARISON: Prior CT from April 01, 2022 FINDINGS: PELVIS 3 views were obtained. There are subacute minimally displaced fractures of the right inferior and superior pubic rami. There is a chronic healed fracture of the left inferior pubic ramus. There are advanced degenerative changes of the SI joints. There are postoperative changes of the bilateral hips. IMPRESSION: Minimally displaced right inferior and superior pubic rami fractures, subacute in appearance. Reviewed, Interpreted and Dictated by Idalia Fournier MD Transcribed by Ashleigh Jaimes Authenticated and . [facility]
== END ==
PROVIDERS: PCP Family Medicine; Visit Provider Physician Assistant Surgical
DX: S32.591A Other specified fracture of right pubis, initial encounter for closed fracture (principal)
CPT/HCPCS: 72190

== ENCOUNTER → 2022-05-22 13:35 | Outpatient (CLI) | payer MEDICARE, OTHER, SELFPAY ==
--- NOTE | 2022-05-22 13:43 | XR_ITS ---
FINAL REPORT CLINICAL HISTORY: fracture COMPARISON: April 19, 2022 FINDINGS: AP PELVIS: A single view of the pelvis was obtained. There are intramedullary rods securing the bilateral proximal femurs. There are fractures of the superior and inferior right pubic rami and inferior left pubic ramus, similar to prior. IMPRESSION: Pubic rami fractures, similar to prior. Reviewed, Interpreted and Dictated by Ivan Huffman MD Transcribed by Ryder Jacobs Authenticated and [facility]
== END ==
PROVIDERS: PCP Family Medicine; Visit Provider Physician Assistant Surgical
DX: S32.511D Fracture of superior rim of right pubis, subsequent encounter for fracture with routine healing (principal)
CPT/HCPCS: 72170

== ENCOUNTER 2022-07-19 15:00 | Outpatient (RCR) | payer MEDICARE, OTHER, SELFPAY ==
--- NOTE | 2022-05-28 16:22 | HMH.PTOPEV ---
PT Outpatient Evaluation Rehab PT Outpatient Evaluation Start: 05/28/22 14:56 Freq: Status: Active Protocol: Document 05/28/22 14:56 PDESEROUX (Rec: 05/28/22 16:21 PDESEROUX [id number]) E-signed By Corey Kim, PT Outpatient Therapy Subjective History Subjective History Pt. is a 86 year old female whom presents to [facility] in [place] for the initial evaluation this date( 05/28/22) w/ c/o subacute and intermittent RLE hip P! and weakness of traumatic onset since having a fall. Pt. reports falling in [place] on 04/01/22 as DOI. Pt. reports getting her SPC caught in a pew as mechanism of fall, denies dizziness/light- headedness. Diagnostic imaging positive for R pubic rami fx. Pt. reports current ambulating w/ 4-point standard walker @ home and in community, but states she would like to get back to ambulating w/ her cane again. Pt. reports current IND. w/ ADLs and lives alone. Pt. RTMD in 6 weeks. Current medications include Ibuprofen, Tylenol, B-12 tablets, and Omepraozle. PMH includes osteoporosis, S/P B/L femur surgical reconstructions, hx. of breast cancer, OA, and shattered RLE ankle. Pt. denies pacemaker, denies latex nor medicational allergies at this time. Chief Complaint Pain,Weakness Symptom Type Ache,Dull Symptoms Relieved By Rest/Positioning,Brace/Support ,OTC Meds,Activity Symptoms Aggravated By Standing,Bending/Stooping, Physical Activity,Twisting, Walking Prior Functional Limitations None Current Functional Limitations Standing,Sitting,Recreation Activity,Walking,Stairs, Balance Symptom Description Intermittent,Activity
== END 2022-07-26 14:30 | disposition home or self-care (01) ==
LOC: PT 15:00
PROVIDERS: PCP Family Medicine; Visit Provider Orthopaedic Surgery
DX: S32.591A Other specified fracture of right pubis, initial encounter for closed fracture (principal)
CPT/HCPCS: 97110; 97163; 97164; 97530

== ENCOUNTER → 2022-07-26 13:23 | Outpatient (CLI) | payer MEDICARE, OTHER, SELFPAY ==
--- NOTE | 2022-07-26 13:31 | XR_ITS ---
FINAL REPORT CLINICAL HISTORY: pelvis fracture COMPARISON: 05/22/2022 FINDINGS: Pelvis Three views were obtained. Again identified are bilateral superior and inferior pubic rami fractures. The bony alignment is stable. There are postoperative changes in the bilateral femurs. There are degenerative changes in the lower lumbar spine and sacroiliac joints. IMPRESSION: Bilateral superior and inferior pubic rami fractures. Reviewed, Interpreted and Dictated by Bull Metzger III, MD Transcribed by Viviane Mallory Authenticated and [facility]
== END ==
PROVIDERS: PCP Family Medicine; Visit Provider Physician Assistant Surgical
DX: S32.511A Fracture of superior rim of right pubis, initial encounter for closed fracture (principal)
CPT/HCPCS: 72190

== ENCOUNTER 2023-09-16 13:32 | Emergency (ER) | payer MEDICARE, OTHER, SELFPAY ==
[2023-09-16 13:33] VITALS: BP 141/76; PULSE 99; RESP 15; TEMP 36.6; O2SAT 98; BMI 25.4
[2023-09-16 14:00] VITALS: BP 134/69; PULSE 89; O2SAT 95
--- NOTE | 2023-09-16 14:21 | CT_ITS ---
FINAL REPORT TECHNIQUE: Axial images through the pelvis were performed by computed tomography. Sagittal and coronal reconstruction images were performed. This study was performed with techniques to keep radiation doses as low as reasonably achievable (ALARA). Individualized dose reduction techniques using automated exposure control or adjustment of mA and/or kV according to the patient's size were employed. CLINICAL HISTORY: fall injury COMPARISON: None FINDINGS: There are chronic fractures of the superior and inferior pubic rami. 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 There is partial nonunion of the right inferior pubic ramus fracture. No acute fracture is identified. There are postoperative changes of the bilateral femurs. No dislocation identified. Degenerative changes are noted of the SI joints. No soft tissue abnormality. IMPRESSION: No acute process. 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 Reviewed, Interpreted and Dictated by Bull Metzger III, MD Transcribed by Yancy Heredia Authenticated and [facility]
--- NOTE | 2023-09-16 14:21 | CT_ITS ---
FINAL REPORT CLINICAL HISTORY: fall injury COMPARISON: None FINDINGS: Axial imaging of the lumbar spine was obtained without contrast. Sagittal and coronal reformatted images were also obtained and reviewed.This study was performed with techniques to keep radiation doses as low as reasonably achievable (ALARA). Individualized dose reduction techniques using automated exposure control or adjustment of mA and/or kV according to the patient''s size were employed. There is a chronic L1 compression fracture with changes from kyphoplasty and bilateral L1 laminectomies. There is no acute fracture. Mild anterolisthesis is noted of L4 on L5. There is moderate degenerative change. There is no evidence of significant central canal stenosis. IMPRESSION: No acute fracture. Chronic L1 compression fracture. Reviewed, Interpreted and Dictated by Bull Metzger III, MD Transcribed by Yancy Heredia Authenticated and [facility]
--- NOTE | 2023-09-16 14:23 | ED_ITS ---
Discharge Plan Disposition Patient Disposition: Home, Self-Care Prescriptions Prescriptions: No Action ICaps AREDS [id number] capsule 1 cap PO BID calcium carbonate [Tums] 200 mg calcium (500 mg) tablet,chewable 200 mg PO BID cyanocobalamin (vitamin B-12) 1,000 mcg capsule 1,000 mcg PO DAILY alprazolam 0.25 mg tablet 0.25 mg PO DAILY Qty: 30 3RF omeprazole 20 mg capsule,delayed release(DR/EC) 20 mg PO DAILY Qty: 90 1RF cetirizine 10 mg tablet 10 mg PO DAILY Qty: 90 1RF fluticasone propionate 50 mcg/actuation spray,suspension 2 spray intranasal DAILY Qty: 16 12RF cholecalciferol (vitamin D3) 1,000 UNIT capsule 1,000 unit PO DAILY ascorbic acid (vitamin C) 500 MG tablet 500 mg PO BID 30 Days Qty: 60 0RF zinc sulfate 220 MG capsule 220 mg PO DAILY 30 Days Qty: 30 0RF Referrals Follow up/Referrals: Israel Shankar MD [Primary Care Provider] - See instructions Activity Restrictions/Add. Instructions Additional Instructions/Restrictions: Call your family doctor to establish care for this visit to the emergency department and schedule follow-up within 48 hours to ensure improvement. If you have any worsening of your condition or any other concerning signs or symptoms, return to the emergency department or your primary care doctor for further evaluation. If you continue to have new pains, you can always follow-up with Dr. Win for further evaluation. Clinical Impressions Clinical Impression: Sacroiliac sprain, Fall Instructions Patient Instructions: DI for Low Back Pain Discharge ED Provider: Delon Pulliam General Adult HPI <Presley Cespedes MD - Last Filed: 09/16/23 14:30> General Chief complaint: Back Pain/Injury Stated complaint: back pain Time Seen by Provider: 09/16/23 14:03 Mode of Arrival: Wheelchair Source of Information: Patient and Medical Record Limitations: No Limitations Description of Symptoms (Recalled from ER Triage Doc. by RN): c/o lower center/right back pain that started Saturday after lifting a large detergent container, states that she was trying to get it off the washer when it jerked her right arm, which is when the pain started. Reports that when she turns a certain way then the pain is severe. Sitting makes the pain better. Pt took tylenol and motrin prior to arrival and reports that the pain has improved. History of Present Illness HPI narrative: Patient is an 87-year-old female presenting today primarily for right sacroiliac pain after a fall. States that she lives at home by herself and was trying to lift a very large detergent container when it slipped off of the side of her washer and dryer and pulled her to the ground the sudden thrust is primarily with her her but she did wind up on her hands and knees and is unsure if she had any significant impact on the ground. She did state that she also had some discomfort in her right arm but range of motion and pain have since improved since the initial injury. Daughter is at the bedside with her states that she normally can get around with a cane but has been having to use a walker and has been having more lack of mobility. No urinary bowel incontinence urinary retention lower extremity paralysis saddle anesthesia etc. She denies any significant midline pain. Related Data Home Medications Medication Instructions Recorded Confirmed calcium carbonate (Tums) 200 mg PO BID Supplement 04/10/18 07/15/23 vitamins A,C,O-fmtm-gufvwg 4,296 1 cap PO BID Supplement 04/10/18 07/15/23 mcg-226 mg-90 mg capsule (ICaps AREDS) cholecalciferol (vitamin D3) 25 1,000 unit PO DAILY Supplement 01/01/20 07/15/23 mcg (1,000 unit) capsule cyanocobalamin (vitamin B-12) 1,000 mcg PO DAILY 02/06/22 07/15/23 1,000 mcg capsule Previous Rx's Medication Instructions Recorded ascorbic acid (vitamin C) 500 mg 500 mg PO BID 30 days #60 tabs 01/05/20 tablet zinc sulfate 50 mg zinc (220 mg) 220 mg (4.4 x 50 mg zinc (220 mg)) 01/05/20 capsule PO DAILY 30 days #30 caps alprazolam 0.25 mg tablet 0.25 mg PO DAILY Anxiety #30 tabs 06/13/23 cetirizine 10 mg tablet 10 mg PO DAILY #90 tabs 07/09/23 omeprazole 20 mg capsule,delayed 20 mg PO DAILY Heartburn #90 caps 07/09/23 release fluticasone propionate 50 2 spray intranasal DAILY #16 grams 08/09/23 mcg/actuation nasal spray,suspension Allergies Allergy/AdvReac Type Severity Reaction Status Date / Time No Known Allergies Allergy Verified 07/15/23 11:23 [facility] <Presley Cespedes MD - Last Filed: 09/16/23 14:30> [facility] Disclaimer: The information contained in this section may have been updated after the patient was seen, as this information can be updated by other users. Medical History (Updated 09/16/23 @ 16:27 by Delon Pulliam MD) Cerumen impaction Anxiety Surgical History Hx of cataract surgery Previous back surgery History of deviated nasal septum H/O mastectomy History of arthroplasty of right ankle Femur fracture, left Femur fracture, right Family History Mother Cancer Social History Smoking Status: Never smoker second hand exposure: No alcohol intake: never substance use type: denies use current occupational status: retired Travel in the last 8 weeks: None household members: spouse housing: house marital status: current occupation: retired [employer] <Presley Cespedes MD - Last Filed: 09/16/23 14:30> ROS Obtained: Yes All systems reviewed & no additional complaints except as documented Physical Exam <Presley Cespedes MD - Last Filed: 09/16/23 14:30> General General appearance: alert and in no apparent distress Respiratory Respiratory exam: Present normal lung sounds bilaterally Cardiovascular Cardiovascular exam: Present regular rate Extremities Exam Extremities exam: Present other (Bilateral lower extremity exam is normal also has normal range of motion no soft tissue tenderness or abnormalities in the right upper extremity) Back Exam Back exam: Present other (Neurovascular intact distal to her site of injury and pain) Back 1 view image: 2 1. Tenderness to palpation no midline L or T-spine tenderness palpation Neurological Exam Neurological exam: Present alert and oriented X3 Medical Decision Making <Presley Cespedes MD - Last Filed: 09/16/23 14:30> Toro Inquiry Pt receiving controlled substance: No Vital Signs: 09/16/23 13:33 09/16/23 14:00 09/16/23 15:00 Temperature 97.8 F Temperature Source Oral Pulse Rate 89 85 Pulse Rate [Left Radial] 99 H Respiratory Rate 15 Blood Pressure 134/69 145/77 H Blood Pressure [Right Arm] 141/76 H Blood Pressure Mean [Right Arm] 97 Blood Pressure Source [Right Arm] Automatic Cuff Blood Pressure Position [Right Arm] Sitting 02 Sat by Pulse Oximetry 98 95 96 Oxygen Delivery Method Room Air Room Air Room Air 09/16/23 15:30 09/16/23 16:00 09/16/23 16:32 Temperature 97.8 F Temperature Source Oral Pulse Rate 80 79 74 Pulse Rate [Left Radial] Respiratory Rate 20 Blood Pressure 145/69 H 137/78 161/60 H Blood Pressure [Right Arm] Blood Pressure Mean [Right Arm] Blood Pressure Source [Right Arm] Blood Pressure Position [Right Arm] 02 Sat by Pulse Oximetry 94 L 95 Oxygen Delivery Method Room Air Room Air Room Air Orders (Tests/Meds): ED MEDICATIONS Discontinued Medications Generic Name Dose Route Start Last Admin Trade Name Freq PRN Reason Stop Dose Admin Hydrocodone Bitart/Acetaminophen 1 tab 09/16/23 14:21 09/16/23 14:26 Hydrocodone/Apap 5/325 Mg Tablet PO 09/16/23 14:22 1 tab ONCE ONE Administration Lidocaine 1 each 09/16/23 14:21 09/16/23 14:26 Lidocaine 5% Transdermal Patch TP 09/16/23 14:22 1 each ONCE ONE Administration ORDERS Category Date Time Status CT bony pelvis Stat Cat Scan 09/16/23 14:[address] lumbar spine wo con Stat Cat Scan 09/16/23 14:21 Completed Medical Decision Narrative: 87-year-old with above history and physical most likely a sacroiliac strain given the mechanism as it seems to have mostly been a jolting type injury when the heavy object she was holding pulled her down abruptly. She is unsure as to whether or not she hit the ground she is having severe pain. According to her daughter she is not somebody who almost ever complains of pain especially to this level of severity. Will get a CT scan of her bony pelvis as well as her lumbar spine to further evaluate for possible fractures or dislocations. A Atalissa and lidocaine patch have been administered. He will be transition to Dr. Pulliam for further evaluation and management. <Delon Pulliam MD - Last Filed: 09/16/23 19:32> Vital Signs: 09/16/23 13:33 09/16/23 14:00 09/16/23 15:00 Temperature 97.8 F Temperature Source Oral Pulse Rate 89 85 Pulse Rate [Left Radial] 99 H Respiratory Rate 15 Blood Pressure 134/69 145/77 H Blood Pressure [Right Arm] 141/76 H Blood Pressure Mean [Right Arm] 97 Blood Pressure Source [Right Arm] Automatic Cuff Blood Pressure Position [Right Arm] Sitting 02 Sat by Pulse Oximetry 98 95 96 Oxygen Delivery Method Room Air Room Air Room Air 09/16/23 15:30 09/16/23 16:00 09/16/23 16:32 Temperature 97.8 F Temperature Source Oral Pulse Rate 80 79 74 Pulse Rate [Left Radial] Respiratory Rate 20 Blood Pressure 145/69 H 137/78 161/60 H Blood Pressure [Right Arm] Blood Pressure Mean [Right Arm] Blood Pressure Source [Right Arm] Blood Pressure Position [Right Arm] 02 Sat by Pulse Oximetry 94 L 95 Oxygen Delivery Method Room Air Room Air Room Air Orders (Tests/Meds): ED MEDICATIONS Discontinued Medications Generic Name Dose Route Start Last Admin Trade Name Freq PRN Reason Stop Dose Admin Hydrocodone Bitart/Acetaminophen 1 tab 09/16/23 14:21 09/16/23 14:26 Hydrocodone/Apap 5/325 Mg Tablet PO 09/16/23 14:22 1 tab ONCE ONE Administration Lidocaine 1 each 09/16/23 14:21 09/16/23 14:26 Lidocaine 5% Transdermal Patch TP 09/16/23 14:22 1 each ONCE ONE Administration ORDERS Category Date Time Status CT bony pelvis Stat Cat Scan 09/16/23 14:[address] lumbar spine wo con Stat Cat Scan 09/16/23 14:21 Completed Medical Decision Narrative: 87-year-old with above history and physical most likely a sacroiliac strain given the mechanism as it seems to have mostly been a jolting type injury when the heavy object she was holding pulled her down abruptly. She is unsure as to whether or not she hit the ground she is having severe pain. According to her daughter she is not somebody who almost ever complains of pain especially to this level of severity. Will get a CT scan of her bony pelvis as well as her lumbar spine to further evaluate for possible fractures or dislocations. A Atalissa and lidocaine patch have been administered. He will be transition to Dr. Pulliam for further evaluation and management. Shasha: I assumed primary responsibility for this patient after signout from previous physician. On evaluation, patient very well-appearing, no acute complaints. Independent interpretation of CT scans demonstrates no acute injury of the imaged lumbar spine or pelvis. She does have some chronic injuries that do not seem to be significantly changed. See radiology report for final read. Patient ambulated without issue, appropriate for discharge. Because patient at baseline without signs or symptoms of clinical decompensation, deemed appropriate for discharge. Results were relayed to patient who voiced understanding and were agreeable to outpatient management and follow up. I discussed my clinical impression with patient and answered all questions. At this time, the evidence for any other entities in the differential is insufficient to warrant any further testing or ED observation. This was explained as well. Advisory was given that persistent or worsening symptoms require further evaluation. I confirmed the understanding of this discussion. Critical Care <Presley Cespedes MD - Last Filed: 09/16/23 14:30> Critical Care Time Critical Care Time: No
[2023-09-16] MEDS: LIDOCAINE 5% TRANSDERMAL PATCH 1 EACH TP (14:26)
[2023-09-16] MEDS: HYDROCODONE/APAP 5/325 MG TABLET 1 TAB PO (14:26)
[2023-09-16 15:00] VITALS: BP 145/77; PULSE 85; O2SAT 96
[2023-09-16 15:30] VITALS: BP 145/69; PULSE 80; O2SAT 94
[2023-09-16 16:00] VITALS: BP 137/78; PULSE 79; O2SAT 95
[2023-09-16 16:32] VITALS: BP 161/60; PULSE 74; RESP 20; TEMP 36.6; O2SAT 96
== END 2023-09-16 16:32 | disposition home or self-care (01) ==
PROVIDERS: Emergency Provider Emergency Medicine; PCP Family Medicine
DX: S33.6XXA Sprain of sacroiliac joint, initial encounter (principal); W19.XXXA Unspecified fall, initial encounter; M46.1 Sacroiliitis, not elsewhere classified
CPT/HCPCS: 72131; 72192; 99284

== ENCOUNTER 2024-02-06 17:59 | Emergency (ER) | payer MEDICARE, OTHER, SELFPAY ==
--- NOTE | 2024-02-06 18:00 | PC.NURSE ---
PT PLACED IN C-COLLAR
[2024-02-06 18:01] VITALS: BP 184/90; PULSE 69; RESP 16; TEMP 36.7; O2SAT 96; BMI 24.0
--- NOTE | 2024-02-06 18:06 | HMH.EDGENADL ---
Discharge Plan Disposition Patient Disposition: Home, Self-Care Condition: Good Prescriptions Prescriptions: No Action ICaps AREDS [id number] capsule 1 cap PO BID calcium carbonate [Tums] 200 mg calcium (500 mg) tablet,chewable 200 mg PO BID cyanocobalamin (vitamin B-12) 1,000 mcg capsule 1,000 mcg PO DAILY fluticasone propionate 50 mcg/actuation spray,suspension 2 spray intranasal DAILY Qty: 16 12RF alprazolam 0.25 mg tablet 0.25 mg PO DAILY Qty: 30 3RF omeprazole 20 mg capsule,delayed release(DR/EC) 20 mg PO DAILY Qty: 90 0RF cetirizine 10 mg tablet 10 mg PO DAILY Qty: 90 0RF cholecalciferol (vitamin D3) 1,000 UNIT capsule 1,000 unit PO DAILY ascorbic acid (vitamin C) 500 MG tablet 500 mg PO BID 30 Days Qty: 60 0RF zinc sulfate 220 MG capsule 220 mg PO DAILY 30 Days Qty: 30 0RF Referrals Follow up/Referrals: Israel Shankar MD [Primary Care Provider] - See instructions Activity Restrictions/Add. Instructions Additional Instructions/Restrictions: Please return with any new or worsening symptoms, including those such as nausea, vomiting, severe headache, hearing changes, vision changes, confusion, or any other new or worsening symptoms. Clinical Impressions Clinical Impression: Closed head injury Instructions Patient Instructions: DI for Closed Head Injury Print Language Print Language: Mongolian Discharge ED Provider: Aly Loomis Adult HPI General Chief complaint: Head Injury Stated complaint: AO 02/06/24 1715 Feel hit back of head Time Seen by Provider: 02/06/24 18:06 History of Present Illness HPI narrative: The patient presents with a chief complaint of a recent fall. 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 The patient states that she lost her balance when she took a step back to avoid a hug from another person. The patient recalls hitting the back of her head during the fall but denies any bleeding. She mentions that she bonked her head a couple of times during the fall. The patient does not remember hitting anything other than the back of her head and denies any pain in her back. She denies any current pain or discomfort. Additionally, the patient reports that an ice pack was applied to her head immediately after the fall by one of the men's husbands who was present at the scene. She has been wearing a cervical collar for support and expresses that she felt the collar would help if she had to wear it for a long time. The patient states that the assistant baseball coach came to see her after the incident. Please note that above description of symptoms, in this electronic medical record under categorization of recalled from ER triage doctor by RN are reflective of an initial nursing assessment, however, is not reflective of my full history and physical exam that was personally taken and clarified. Consequentially, this preceding description of symptoms, which may include the patient's categorized chief complaint in the EMR, do not reflect my personal clinical impression, and the ultimate description of history of present illness and patient stated complaints should be deferred to this section of the note. Unless stated otherwise or congruent with this section of the note, additional signs, symptoms, or incongruence should be interpreted as inaccurate with my clinical impression. Related Data Home Medications ?Medication ?Instructions ?Recorded ?Confirmed calcium carbonate (Tums) 200 mg PO BID Supplement 04/10/18 02/05/24 vitamins A,C,L-wcdz-walcmm 4,296 1 cap PO BID Supplement 04/10/18 02/05/24 mcg-226 mg-90 mg capsule (ICaps AREDS) cholecalciferol (vitamin D3) 25 1,000 unit PO DAILY Supplement 01/01/20 02/05/24 mcg (1,000 unit) capsule cyanocobalamin (vitamin B-12) 1,000 mcg PO DAILY 02/06/22 02/05/24 1,000 mcg capsule Previous Rx's ?Medication ?Instructions ?Recorded ascorbic acid (vitamin C) 500 mg 500 mg PO BID 30 days #60 tabs 01/05/20 tablet zinc sulfate 50 mg zinc (220 mg) 220 mg (4.4 x 50 mg zinc (220 mg)) 01/05/20 capsule PO DAILY 30 days #30 caps fluticasone propionate 50 2 spray intranasal DAILY #16 grams 08/09/23 mcg/actuation nasal spray,suspension alprazolam 0.25 mg tablet 0.25 mg PO DAILY Anxiety #30 tabs 10/30/23 cetirizine 10 mg tablet 10 mg PO DAILY #90 tabs 01/09/24 omeprazole 20 mg capsule,delayed 20 mg PO DAILY Heartburn #90 caps 01/09/24 release Allergies Allergy/AdvReac Type Severity Reaction Status Date / Time No Known Allergies Allergy Verified 02/05/24 12:59 [facility] Disclaimer: The information contained in this section may have been updated after the patient was seen, as this information can be updated by other users. Medical History Cerumen impaction Anxiety Surgical History Hx of cataract surgery Previous back surgery History of deviated nasal septum H/O mastectomy History of arthroplasty of right ankle Femur fracture, left Femur fracture, right Family History Mother Cancer Social History Smoking Status: Never smoker second hand exposure: No alcohol intake: never substance use type: denies use current occupational status: retired Travel in the last 8 weeks: None household members: spouse housing: house marital status: current occupation: retired [employer] Other Medical History Have you received the Flu Vaccine for this season: No Have you received the Pneumonia Vaccine: Yes ROS Obtained: Yes other As per HPI Physical Exam General General appearance: alert and in no apparent distress Head Head exam: atraumatic and normocephalic Eye Eye exam: Present normal appearance Neck Neck exam: Present normal inspection Chest Chest inspection: Present normal inspection and symmetric chest wall rise Respiratory Respiratory exam: Present normal lung sounds bilaterally; Absent respiratory distress Cardiovascular Cardiovascular exam: Present regular rate and normal rhythm Abdominal Exam Abdominal exam: Present soft Neurological Exam Neurological exam: Present alert and oriented X3 Psychiatric Psychiatric exam: Present normal affect and normal mood Skin Skin exam: Present warm and dry Medical Decision Making Medical Records Medical records reviewed: Yes I reviewed the patient's medical records. Screening: Per USPSTF and CDC recommendations, given the prevalence of disease in our region, it is our hospital?s policy to screen for HIV and viral Hepatitis for all patients aged 18 and over and those with ongoing risk factors. Toro Inquiry Pt receiving controlled substance: No Vital Signs: 02/06/24 18:01 02/06/24 18:30 02/06/24 19:00 Temperature 98.1 F Temperature Source Oral Pulse Rate 87 93 H Pulse Rate [Right] 69 Respiratory Rate 16 Blood Pressure 142/86 H 160/84 H Blood Pressure [Right Arm] 184/90 H Blood Pressure Mean 104 109 Blood Pressure Mean [Right Arm] 121 Blood Pressure Source 02 Sat by Pulse Oximetry 96 98 96 Oxygen Delivery Method Room Air Room Air Room Air 02/06/24 19:20 Temperature 97.8 F Temperature Source Oral Pulse Rate 78 Pulse Rate [Right] Respiratory Rate 17 Blood Pressure 160/87 H Blood Pressure [Right Arm] Blood Pressure Mean Blood Pressure Mean [Right Arm] Blood Pressure Source Automatic Cuff 02 Sat by Pulse Oximetry Oxygen Delivery Method Room Air Orders (Tests/Meds): ORDERS Category Date Time Status CT cervical spine wo con Stat Cat Scan 02/06/24 18:[address] head/brain wo con Stat Cat Scan 02/06/24 18:27 Completed Medical Decision Narrative: Patient with history and exam per above presenting for evaluation of closed head injury Diagnoses considered include diffuse axonal injury, intracranial hemorrhage, cervical spinal fracture, among others ED workup and treatment included: ORDERS Category Date Time Status CT cervical spine wo con Stat Cat Scan 02/06/24 18:[address] head/brain wo con Stat Cat Scan 02/06/24 18:27 Completed Imaging was independently visualized and interpreted by me, significant for no acute findings Please refer to radiology report for full details. My clinical impression at this time is most consistent with closed head injury I discussed my clinical impression with patient and answered all questions. At this time, the evidence for any other entities in the differential is insufficient to warrant any further testing or ED observation. This was explained to the patient. The patient was advised that persistent or worsening symptoms require further evaluation. Critical Care Critical Care Time Critical Care Time: No
--- NOTE | 2024-02-06 18:27 | CT_ITS ---
PROCEDURE INFORMATION: Exam: CT Cervical Spine Without Contrast Exam date and time: 02/06/2024 6:39 PM Age: 88 years old Clinical indication: Injury or trauma; Fall; Additional info: Fall backwards, head/neck injury TECHNIQUE: Imaging protocol: Computed tomography of the cervical spine without contrast. Radiation optimization: All CT scans at this facility use at least one of these dose optimization techniques: automated exposure control; mA and/or kV adjustment per patient size (includes targeted exams where dose is matched to clinical indication); or iterative reconstruction. COMPARISON: CT HEAD/BRAIN WO CON 02/06/2024 6:39 PM FINDINGS: Bones: Mild levoconvex curvature. Trace anterolisthesis of C3 on C4 and C6 on C7. Vertebral body heights are preserved. Mild degenerative change about the dens. Mild prevertebral osteophytosis. Bilateral facet joint degenerative change. No acute cervical spine fracture. No definite significant central canal stenosis within limitations of technique. Lungs: Lung apices are normal. Pleural spaces: No visible pneumothorax. Thyroid: Heterogeneous thyroid. Vasculature: Vascular calcification. Soft tissues: Unremarkable. IMPRESSION: No acute cervical spine fracture.
--- NOTE | 2024-02-06 18:27 | CT_ITS ---
PROCEDURE INFORMATION: Exam: CT Head Without Contrast Exam date and time: 02/06/2024 6:39 PM Age: 88 years old Clinical indication: Injury or trauma; Fall; Additional info: Fall, posterior head injury TECHNIQUE: Imaging protocol: Computed tomography of the head without contrast. Radiation optimization: All CT scans at this facility use at least one of these dose optimization techniques: automated exposure control; mA and/or kV adjustment per patient size (includes targeted exams where dose is matched to clinical indication); or iterative reconstruction. COMPARISON: CT CERVICAL SPINE WO CON 02/06/2024 6:39 PM FINDINGS: Brain: Age-related volume loss. Decreased attenuation of the supratentorial white matter is likely secondary to chronic microvascular ischemia. No acute intracranial hemorrhage, midline shift or intracranial mass effect. Mild prominence of anterior convexity extra-axial spaces, likely sequelae of volume loss. Cerebral ventricles: Ventriculomegaly is commensurate for degree of volume loss. Paranasal sinuses: Mild paranasal sinus disease. Mastoid air cells: Heterogeneous calvarial atten mastoid air cells are under pneumatized and partially opacified. Bones: See Mastoid air cells finding. Soft tissues: Unremarkable. IMPRESSION: No acute intracranial abnormality.
[2024-02-06 18:30] VITALS: BP 142/86; PULSE 87; O2SAT 98
[2024-02-06 19:00] VITALS: BP 160/84; PULSE 93; O2SAT 96
[2024-02-06 19:20] VITALS: BP 160/87; PULSE 78; RESP 17; TEMP 36.6; O2SAT 97
== END 2024-02-06 19:21 | disposition home or self-care (01) ==
PROVIDERS: Emergency Provider Emergency Medicine; PCP Family Medicine
DX: S09.90XA Unspecified injury of head, initial encounter (principal); R51.9 Headache, unspecified; W01.0XXA Fall on same level from slipping, tripping and stumbling without subsequent striking against object, initial encounter; Y93.89 Activity, other specified; Y92.89 Other specified places as the place of occurrence of the external cause
CPT/HCPCS: 70450; 72125; 99284

== ENCOUNTER 2024-11-30 18:09 | Emergency (ER) | payer MEDICARE, SELFPAY ==
[2024-11-30 19:41] VITALS: BP 156/76; PULSE 86; RESP 16; TEMP 36.8; O2SAT 98; BMI 24.6
--- NOTE | 2024-11-30 19:51 | XR_ITS ---
PROCEDURE INFORMATION: Exam: XR Left Ribs with PA Chest Exam date and time: 11/30/2024 8:23 PM Age: 89 years old Clinical indication: Chest wall pain; Left; Additional info: Fall, left sided chest pain TECHNIQUE: Imaging protocol: Radiologic exam of the left ribs with PA chest. Views: 3 views COMPARISON: CR XR CHEST PORTABLE 01/04/2020 6:04 AM FINDINGS: Lungs: Unremarkable. No consolidation. Pleural spaces: Unremarkable. No pleural effusion. No pneumothorax. Heart/Mediastinum: Moderate-sized hiatal hernia. No cardiomegaly. Bones/joints: Unremarkable. IMPRESSION: No acute findings.
--- OUTSIDE RECORDS SUMMARY | 2024-11-30 20:12 | XMS_ITS | Clinical Summary ---
[facility] Organization [facility] Address [address] [place] [address] Care Team Providers Care Network Control Operators Supervisor Name Role Phone Raisa Harrell MD Primary Care Provider [phone] Allergies No known active allergies Medications alendronate (FOSAMAX) 70 MG tablet TK 1 T PO WEEKLY 5 11/12/2018 Active ALPRAZolam (XANAX) 0.25 MG tablet TK 1 T PO QD PRN 0 11/20/2018 Active atorvastatin (LIPITOR) 40 MG tablet Take by mouth Daily. 3 10/20/2018 Active D3-1000 1000 units capsule TK 1 C PO QD 3 11/13/2018 Active fluticasone (FLONASE) 50 MCG/ACT nasal spray SHAKE LQ AND U 2 SPRAYS IEN QD 5 11/21/2018 Active omeprazole (priLOSEC) 20 MG capsule TK 1 C PO QD FOR ACID REFLUX 3 09/22/2018 Active meclizine 25 MG chewable tablet chewable tablet Chew 25 mg 3 (Three) Times a Day As Needed. Active Active Problems No known active problems Family History Relation Name Status Comments Father Mother Social History Tobacco Use Types Packs/Day Years Used Date Smoking Tobacco: Never Smokeless Tobacco: Never Alcohol Use Standard Drinks/Week Comments No 0 (1 standard drink = 0.6 oz pur e alcohol) AUDIT-C Answer Date Recorded Frequency of Alcohol Consumption Never 12/10/2018 Average Number of Drinks Not on file 019 Frequency of Binge Drinking Not on file 11/14 Abuse Screen Answer Date Recorded Unsafe at Home or Work/School Not on file Feels Threatened by Someone? Not on file 12/2022 Does Anyone Keep You from Co ntacting Others or Doint Things Outside the Home? Not on file 01/21/2023 Physical Sign of Abuse Present Not on file 1 Housing Stability Answer Date Recorded Current Living Arrangements Not on file 12/2022 Potentially Unsafe Housing Conditions Not on michelle e 01/21/2023 Family and Community Support Answer Yovani e Recorded Help with Day-to-Day Activities Not on file 01/21/2023 Lonely or Isolated Not on file 01/21/2023 Employment Answer Date Recorded Do you want help finding or keeping work or a jaylene b? Not on file 01/21/2023 Disabilities Answer Date Recorded Concentrating, Remembering, or Making Decisions Difficulty Not on file 01/21/2023 Doing Errands Independently Difficulty Not on fi le 01/21/2023 Education Answer Date Recorded Help with school or training? Not on file Preferred Language Not on file 01/21/2023 Comments Unknown Sex and Gender Information Value Date Recorded Sex Assigned at Not on file Legal Sex Female 10:02 AM EDT Gender Identity Not on file Sexual Orientation Not on file Last Filed Vital Signs Vital Sign Reading Time Taken Comments Blood Pressure - - Pulse 95 12/10/2018 1:12 PM EDT Temperature - - Respiratory Rate - - Oxygen Saturation 98% 12/10/2018 1:12 PM EDT Inhaled Oxygen Concentration - - Weight 60 kg (132 lb 4.4 oz) 12/10/2018 1:12 PM EDT Height 147.3 cm (4' 10 ) 12/10/2018 1:12 PM EDT Body Mass Index 27.65 12/10/2018 1:12 PM EDT Plan of Treatment Health Maintenance Due Date Last Done Comments DXA SCAN 1936 TDAP/TD VACCINES (1 - Tdap) 10/08/1955 ZOSTER VACCINE (1 of 2) 1986 RSV Vaccine - Adults (1 - 1- dose 75+ series) 10/08/2011 ANNUAL PHYSICAL 12/10/2018 COVID-19 Vaccine (1 - 2023- season) 2023 INFLUENZA VACCINE 01/13/2025 12/31/2017, 01/13/2017 Pneumococcal Vaccine 50+ Completed 04/16/2014, 04/2007 [facility] Care Teams Network Control Operators Supervisor Relationship Specialty Start Date End Date Raisa Harrell MD [address] [place] [phone] PCP - General Internal Medicine 12/10/18
--- NOTE | 2024-11-30 21:13 | PC.NURSE ---
Pt to room Skin pale warm and dry REsp full and easy Pain in right ribs only with movement. Speech clear and appropriate Family at bedside.
--- NOTE | 2024-11-30 21:51 | ED_ITS ---
Discharge Plan Disposition Patient Disposition: Home, Self-Care Prescriptions Prescriptions: No Action ICaps AREDS [id number] capsule 1 cap PO BID calcium carbonate [Tums] 200 mg calcium (500 mg) tablet,chewable 200 mg PO BID cyanocobalamin (vitamin B-12) 1,000 mcg capsule 1,000 mcg PO DAILY fluticasone propionate 50 mcg/actuation spray,suspension 2 spray intranasal DAILY Qty: 16 12RF cetirizine 10 mg tablet 10 mg PO DAILY Qty: 90 0RF omeprazole 20 mg capsule,delayed release(DR/EC) 20 mg PO DAILY Qty: 90 0RF alprazolam 0.25 mg tablet 0.25 mg PO DAILY Qty: 30 3RF cholecalciferol (vitamin D3) 1,000 UNIT capsule 1,000 unit PO DAILY ascorbic acid (vitamin C) 500 MG tablet 500 mg PO BID 30 Days Qty: 60 0RF zinc sulfate 220 MG capsule 220 mg PO DAILY 30 Days Qty: 30 0RF Activity Restrictions/Add. Instructions Additional Instructions/Restrictions: You do not appear to have any rib fractures on today's x-rays. I encourage you to take Tylenol for pain and use the incentive spirometer device every hour to ensure that you do not develop a pneumonia. Follow-up with your primary care physician if symptoms do not improve. If you develop any new or worsening symptoms, or if you become concerned for your health for any reason, return to the emergency department for evaluation. Clinical Impressions Clinical Impression: Rib pain on left side Print Language Print Language: Latvian Discharge ED Provider: Rex Hernandze General Adult HPI General Chief complaint: Fall Stated complaint: AO 11/30/24 0730 Injury left ribs Time Seen by Provider: 11/30/24 21:33 Mode of Arrival: Wheelchair Source of Information: Patient Description of Symptoms (Recalled from ER Triage Doc. by RN): pt presents to the er for a fall around 7:30am, tripped and fell hitting her L side, reports rib pain, movment increases the pain and breathing makes the pain worse as well, denies hitting her head or loc, denies being on blood thinners, rates rib pain 5/10, intermittent, and sharp, hasn't taken any medication for the pain since this am History of Present Illness HPI narrative: Kellie Kaur is an 89y female with no significant past medical history who presents to the emergency department for complaints of left-sided rib pain after a fall. Patient states earlier today, she was using her walker and it got tangled up in something on the floor, causing her to fall. She landed with her left arm underneath her left rib and landed on her left side. She denies any head trauma or loss of consciousness. She was able to get up and ambulate on her own. She denies any abdominal pain, nausea or vomiting. She is not on any blood thinning medications. Related Data Home Medications ?Medication ?Instructions ?Recorded ?Confirmed calcium carbonate (Tums) 200 mg PO BID Supplement 09/21/24 vitamins A,C,C-girb-kvcehs 4,296 1 cap PO BID Suppleme nt 04/10/18 09/21/24 mcg-226 mg-90 mg capsule (ICaps AREDS) cholecalciferol (vitamin D3) 25 1,000 unit PO DAILY [place]rales pplement 01/01/20 09/21/24 mcg (1,000 unit) capsule cyanocobalamin (vitamin B-12) 1,000 mcg PO DAILY 02/0609/21/24 1,000 mcg capsule Previous Rx's ?Medication ?Instructions ?Recorded ascorbic acid (vitamin C) 500 mg 500 mg PO BID 30 days #60 tabs 01/05/20 tablet zinc sulfate 50 mg zinc (220 mg) 220 mg (4.4 x 50 mg z inc (220 mg)) 01/05/20 capsule PO DAILY 30 days #30 caps fluticasone propionate 50 2 spray intranasal DAILY #16 grams 08/09/23 mcg/actuation nasal spray,suspension cetirizine 10 mg tablet 10 mg PO DAILY #90 tabs 12/15 10/06 omeprazole 20 mg capsule,delayed 20 mg PO DAILY Heartb urn #90 caps 04/27/24 release alprazolam 0.25 mg tablet 0.25 mg PO DAILY Anxiety #30 tabs 11/30/24 Allergies Allergy/AdvReac Type Severity Reaction Status Date / Time No Known Allergies Allergy Verified 09/21/24 13:20 [facility] Disclaimer: The information contained in this section may have been updated after the patient was seen, as this information can be updated by other users. Medical History Cerumen impaction Anxiety Surgical History Hx of cataract surgery Previous back surgery History of deviated nasal septum H/O mastectomy History of arthroplasty of right ankle Femur fracture, left Femur fracture, right Family History Mother Cancer Social History Smoking Status: Never smoker second hand exposure: No alcohol intake: never substance use type: denies use current occupational status: retired Travel in the last 8 weeks?: None household members: spouse housing: house marital status: current occupation: retired hairdresser Have you lived/traveled outside [place] in past 30 days?: No Contact w/someone who lives/traveled outside US past 30 days?: No Exposure to someone with infectious disease in past 14 days?: No Do you have a fever (greater than 100.4 F or 38 C)?: No Have you tested positive for COVID-19?: No Exposed to someone with COVID-19 in past 14 days?: No Do you have a sore throat?: No Do you have a cough?: No Do you have any weakness?: No Do you have any diarrhea?: No Are you experiencing any unusual bleeding?: No Do you have any muscle aches/pain?: No Do you have any abdominal pain?: No Are you experiencing loss of taste or smell?: No Other Medical History Have you received the Flu Vaccine for this season: No Have you received the Pneumonia Vaccine: Yes ROS Obtained: Yes Systems reviewed as appropriate & no additional complaints except as documented Physical Exam General General appearance: alert and in no apparent distress Head Head exam: atraumatic Eye Eye exam: Present normal appearance ENT ENT exam: Present normal external ear exam Neck Neck exam: Present full ROM Chest Chest inspection: Present symmetric chest wall rise and tenderness (point tenderness over the left liz/lateral inferior ribs just below the left breast without deformity or stepoff) Respiratory Respiratory exam: Present normal lung sounds bilaterally; Absent respiratory distress Cardiovascular Cardiovascular exam: Present regular rate and normal rhythm Abdominal Exam Abdominal exam: Present soft; Absent distention, tenderness, guarding or rebound Extremities Exam Extremities exam: Present normal inspection Back Exam Back exam: Present normal inspection Neurological Exam Neurological exam: Present alert and oriented X3 Psychiatric Psychiatric exam: Present normal affect Skin Skin exam: Present warm and dry Medical Decision Making Medical Records Screening: Per USPSTF and CDC recommendations, given the prevalence of disease in our region, it is our hospital?s policy to screen for HIV and viral Hepatitis for all patients aged 18 and over and those with ongoing risk factors. Toro Inquiry Pt receiving controlled substance: No Vital Signs: 11/30/24 19:41 11/30/24 22:00 Temperature 98.3 F 98.0 F Temperature Source Oral Oral Pulse Rate 80 Pulse Rate [Left Radial] 86 Respiratory Rate 16 20 Blood Pressure 144/64 H Blood Pressure [Right Arm] 156/76 H Blood Pressure Mean [Right Arm] 102 Blood Pressure Source Automatic Cuff Blood Pressure Source [Right Arm] Automatic Cuff Blood Pressure Position Sitting Blood Pressure Position [Right Arm] Sitting 02 Sat by Pulse Oximetry 98 Oxygen Delivery Method Room Air Room Air Orders (Tests/Meds): ORDERS Category Date Time Status XR ribs LT min 3V w CXR1V Stat Exams 11/30/24 19:51 Completed Medical Decision Narrative: Kellie Kaur is an 89y female with no significant past medical history who presents to the emergency department for complaints of left-sided rib pain after a fall. Patient states earlier today, she was using her walker and it got tangled up in something on the floor, causing her to fall. She landed with her left arm underneath her left rib and landed on her left side. She denies any head trauma or loss of consciousness. She was able to get up and ambulate on her own. She denies any abdominal pain, nausea or vomiting. She is not on any blood thinning medications. On arrival, patient is hemodynamically stable, in no acute distress, breathing comfortably on room air. She is alert and oriented, GCS 15. Physical exam, as stated above, revealed an overall well- appearing female in no distress. She has point tenderness in the left anterolateral ribs without deformity or step-off. She has no abdominal pain, distention or tenderness. No evidence of head trauma. Breath sounds are present bilaterally. Differential diagnosis includes, but is not limited to: Rib fracture, pneumothorax, pulmonary contusion. Low concern for intra-abdominal pathology, such as splenic laceration or kidney laceration given patient only has point tenderness over the ribs without abdominal tenderness or pain. Plain films of the chest and ribs were obtained to evaluate for any fractures or pulmonary contusions. These were interpreted by me personally. No evidence of pneumothorax or pulmonary contusion on chest x-ray. No evidence of rib fractures. See final radiology report for details. Given this, patient was encouraged to take Tylenol for pain and was provided an incentive spirometer and was encouraged to use it every hour to avoid getting pneumonia in the setting of pain with breathing. Return precautions were given. All questions were answered. She demonstrated understanding and was in agreement with this plan. She was then discharged from the emergency department in stable condition. Critical Care Critical Care Time Critical Care Time: No
[2024-11-30 22:00] VITALS: BP 144/64; PULSE 80; RESP 20; TEMP 36.7; O2SAT 94
== END 2024-11-30 22:01 | disposition home or self-care (01) ==
PROVIDERS: Emergency Provider Student in an Organized Health Care Education/Training Program
DX: R07.81 Pleurodynia (principal); W18.39XA Other fall on same level, initial encounter
CPT/HCPCS: 71101; 99283